=== PATIENT | female | born 1955 | race Caucasian/White ===

== ENCOUNTER → 2017-06-09 | Outpatient (CLI) | payer OTHER ==
[2017-06-09 10:57] LABS: Blood Urea Nitrogen 17 mg/dL (7-17); Non-African American GFR(MDRD) >60 (>60 ml/min/1.73 sqM)
== END | disposition home or self-care (01) ==
LOC: LABWHC1 09:48
PROVIDERS: ATTEND Psychiatry & Neurology Pain Medicine
DX: G45.9 Transient cerebral ischemic attack, unspecified (principal); R51 Headache
CPT/HCPCS: 36415; 82565; 84520

== ENCOUNTER → 2017-06-11 | Outpatient (CLI) | payer OTHER ==
--- NOTE | 2017-06-11 07:52 | MR ---
EXAMINATION TYPE: MR brain wo/w con DATE OF EXAM: 06/11/2017 7:42 AM COMPARISON: 09/24/2015 HISTORY: headaches, unspecified tia CONTRAST: Patient received 18 mL intravenous MultiHance gadolinium contrast. Multiplanar and multispin-echo imaging of the brain was performed . Pre and post contrast enhanced i mages are obtained. The ventricles, basal cisterns and sulci overlying the cerebral convexities are mildly enlarged. There is evidence of mild periventricular white matter ischemic demyelination. Remote deep white matter insults are also noted. No acute edema is seen on diffusion weighted imaging. There is no evidence for midline shift or mass effect. Acute intracranial hemorrhage or extra-axial collection is not evident. No enhancing lesions are seen. The paranasal sinuses and mastoid air cells are well-aerated. IMPRESSION: Age-related atrophic and chronic small vessel ischemic change. No acute intracranial process at this time. No enhancing lesions are seen.
== END | disposition home or self-care (01) ==
LOC: RADMRIMAIN 07:02
PROVIDERS: ATTEND Psychiatry & Neurology Pain Medicine
DX: G31.9 Degenerative disease of nervous system, unspecified (principal); I67.82 Cerebral ischemia
CPT/HCPCS: 70553; A9577

== ENCOUNTER 2017-12-28 05:16 | Observation (INO) | payer OTHER ==
--- NOTE | 2017-12-28 05:50 | ED ---
General Adult HPI - General Chief complaint: Neuro Symptoms/Deficit Stated complaint: Neuro symptoms Time Seen by Provider: 12/28/17 05:26 Source: patient, family Mode of arrival: ambulatory Limitations: no limitations - History of Present Illness Initial comments: This patient is a 62-year-old woman who states that she woke from sleep tonight with a number of symptoms that came on. She noted that her heart was jumping and she did feel a little short of breath. She stated that she had a funny feeling in her left arm. She is not able to exactly characterize it. She states that it felt a little bit numb more little bit weak. She was concerned after the symptoms did not resolve after she had been awake for a little while. When she described things to family member she was urged to come emergency department. She does note that for the past couple of days she has had a little bit of cough. Onset/Timin -: hour(s) - Related Data Home Medications Medication Instructions Recorded Confirmed Atorvastatin [Lipitor] 80 mg PO HS 09/22/15 12/28/17 Carvedilol [Coreg] 3.125 mg PO DIRECTED 09/22/15 12/28/17 Carvedilol [Coreg] 6.25 mg PO QAM 09/22/15 12/28/17 Cholecalciferol (Vitamin D3) 2,000 unit PO DAILY 12/28/17 12/28/17 [Vitamin D3] Clopidogrel Bisulfate [Plavix] 75 mg PO HS 12/28/17 12/28/17 Cyclobenzaprine [Flexeril] 5 mg PO BID 12/28/17 12/28/17 Losartan Potassium [Cozaar] 25 mg PO DAILY 12/28/17 12/28/17 Pantoprazole Sodium [Protonix] 40 mg PO DAILY 12/28/17 12/28/17 SUMAtriptan SUCCINATE [Imitrex] 50 mg PO ONCE 12/28/17 12/28/17 metFORMIN HCL [Glucophage Xr] 500 mg PO BID 12/28/17 12/28/17 Allergies Allergy/AdvReac Type Severity Reaction Status Date / Time No Known Allergies Allergy Verified 12/28/17 05:23 Review of Systems ROS Statement: Those systems with pertinent positive or pertinent negative responses have been documented in the HPI. ROS Other: All systems not noted in ROS Statement are negative. Constitutional: Denies: fever, chills, weakness Eyes: Denies: vision change Respiratory: Reports: cough. Denies: dyspnea, wheezes Cardiovascular: Reports: palpitations. Denies: chest pain, orthopnea, edema, syncope Gastrointestinal: Denies: abdominal pain, nausea, vomiting Genitourinary: Denies: dysuria Musculoskeletal: Denies: back pain Skin: Denies: rash Neurological: Reports: headache. Denies: weakness, numbness, paresthesias Psychiatric: Reports: anxiety Past Medical History Past Medical History: Diabetes Mellitus, Hyperlipidemia, Hypertension History of Any Multi-Drug Resistant Organisms: None Reported Past Surgical History: Appendectomy, Section, Hernia Repair, Hysterectomy, Tonsillectomy Additional Past Surgical History / Comment(s): carpal tunnel. lap band Past Anesthesia/Blood Transfusion Reactions: No Reported Reaction Past Psychological History: No Psychological Hx Reported Smoking Status: Never smoker Past Alcohol Use History: None Reported Past Drug Use History: None Reported - Past Family History Mother Family Medical History: Liver Disease Additional Family Medical History / Comment(s): pt. states her mother at age 38 from complications of liver disease Father Family Medical History: Coronary Artery Disease (CAD), Diabetes Mellitus Additional Family Medical History / Comment(s): pt. states her father had alzheimers, diabetes, and had open heart surgery Sister(s) Family Medical History: Cancer Additional Family Medical History / Comment(s): kidney cancer General Exam Limitations: no limitations General appearance: alert, in no apparent distress, obese Head exam: Present: atraumatic, normocephalic Eye exam: Present: normal appearance, PERRL, EOMI. Absent: scleral icterus, conjunctival injection, nystagmus ENT exam: Present: normal oropharynx Neck exam: Present: normal inspection Respiratory exam: Present: normal lung sounds bilaterally, other (Patient is having occasional cough during the exam). Absent: respiratory distress, wheezes , rales, rhonchi, stridor Cardiovascular Exam: Present: regular rate, normal rhythm, normal heart sounds. Absent: systolic murmur, diastolic murmur, rubs, gallop GI/Abdominal exam: Present: soft. Absent: distended, tenderness, guarding, rebound, mass Extremities exam: Present: normal inspection, normal capillary refill. Absent: pedal edema, calf tenderness Back exam: Present: normal inspection. Absent: CVA tenderness (R), CVA tenderness (L) Neurological exam: Present: alert, oriented X3, CN II-XII intact. Absent: motor sensory deficit Skin exam: Present: warm, dry, intact, normal color. Absent: rash Course Vital Signs 12/28/17 12/28/17 12/28/17 05:20 05:42 06:12 Temperature 97.8 F Pulse Rate 94 95 95 Respiratory 20 20 18 Rate Blood Pressure 207/98 199/98 206/112 O2 Sat by Pulse 98 97 100 Oximetry 12/28/17 12/28/17 06:26 06:38 Temperature Pulse Rate 95 96 Respiratory 18 18 Rate Blood Pressure 202/90 206/100 O2 Sat by Pulse 98 99 Oximetry EKG Findings - EKG Results: EKG: interpreted by CALEB ARIAS, sinus rhythm (Rate 89 bpm), normal axis, normal QRS, normal ST/T, no acute changes - FL, Pacemaker, Normal: Normal tracing: normal tracing Medical Decision Making - Medical Decision Making This patient is 62-year-old woman who has had previous TIA, presenting with some palpitations and also funny feeling in her left arm. The patient is also hypertensive on arrival, but given the possibility of TIA will aim for very gentle blood pressure correction to minimize risk of causing any increase of ischemic penumbra. The patient's initial workup is negative and she'll be admitted for further evaluation and treatment. - Lab Data Result diagrams: 12/28/17 05:44 12/28/17 05:44 Lab Results 12/28/17 12/28/17 12/28/17 Range/Units 05:30 05:44 05:44 WBC 4.9 (3.8-10.6) k/uL RBC 4.70 (3.80-5.40) m/uL Hgb 14.2 (11.4-16.0) gm/dL Hct 42.1 (34.0-46.0) % MCV 89.5 (80.0-100.0) fL MCH 30.3 (25.0-35.0) pg MCHC 33.8 (31.0-37.0) g/dL RDW 13.3 (11.5-15.5) % Plt Count 156 (150-450) k/uL Neutrophils % 78 % Lymphocytes % 11 % Monocytes % 7 % Eosinophils % 2 % Basophils % 1 % Neutrophils # 3.9 (1.3-7.7) k/uL Lymphocytes # 0.5 L (1.0-4.8) k/uL Monocytes # 0.3 (0-1.0) k/uL Eosinophils # 0.1 (0-0.7) k/uL Basophils # 0.0 (0-0.2) k/uL PT (9.0-12.0) sec INR (<1.2) APTT (22.0-30.0) sec Sodium (137-145) mmol/L Potassium (3.5-5.1) mmol/L Chloride (98-107) mmol/L Carbon Dioxide (22-30) mmol/L Anion Gap mmol/L BUN (7-17) mg/dL Creatinine (0.52-1.04) mg/dL Est GFR (MDRD) Af Amer (>60 ml/min/1.73 sqM) Est GFR (MDRD) Non-Af (>60 ml/min/1.73 sqM) Glucose (74-99) mg/dL POC Glucose (mg/dL) 104 H (75-99) mg/dL POC Glu Senior [employer] Applications Developer ID Blaine, Tracy Calcium (8.4-10.2) mg/dL Total Bilirubin (0.2-1.3) mg/dL AST (14-36) U/L ALT (9-52) U/L Alkaline Phosphatase (38-126) U/L Total Creatine Kinase 87 (30-135) U/L CK-MB (CK-2) 0.6 (0.0-2.4) ng/mL CK-MB (CK-2) Rel Index 0.7 Troponin I <0.012 (0.000-0.034) ng/mL Total Protein (6.3-8.2) g/dL Albumin (3.5-5.0) g/dL 12/28/17 12/28/17 Range/Units 05:44 05:44 WBC (3.8-10.6) k/uL RBC (3.80-5.40) m/uL Hgb (11.4-16.0) gm/dL Hct (34.0-46.0) % MCV (80.0-100.0) fL MCH (25.0-35.0) pg MCHC (31.0-37.0) g/dL RDW (11.5-15.5) % Plt Count (150-450) k/uL Neutrophils % % Lymphocytes % % Monocytes % % Eosinophils % % Basophils % % Neutrophils # (1.3-7.7) k/uL Lymphocytes # (1.0-4.8) k/uL Monocytes # (0-1.0) k/uL Eosinophils # (0-0.7) k/uL Basophils # (0-0.2) k/uL PT 10.6 (9.0-12.0) sec INR 1.1 (<1.2) APTT 24.4 (22.0-30.0) sec Sodium 142 (137-145) mmol/L Potassium 3.5 (3.5-5.1) mmol/L Chloride 102 (98-107) mmol/L Carbon Dioxide 28 (22-30) mmol/L Anion Gap 12 mmol/L BUN 12 (7-17) mg/dL Creatinine 0.72 (0.52-1.04) mg/dL Est GFR (MDRD) Af Amer >60 (>60 ml/min/1.73 sqM) Est GFR (MDRD) Non-Af >60 (>60 ml/min/1.73 sqM) Glucose 127 H (74-99) mg/dL POC Glucose (mg/dL) (75-99) mg/dL POC Glu Senior [employer] Applications Developer ID Calcium 9.6 (8.4-10.2) mg/dL Total Bilirubin 0.5 (0.2-1.3) mg/dL AST 71 H (14-36) U/L ALT 60 H (9-52) U/L Alkaline Phosphatase 103 (38-126) U/L Total Creatine Kinase (30-135) U/L CK-MB (CK-2) (0.0-2.4) ng/mL CK-MB (CK-2) Rel Index Troponin I (0.000-0.034) ng/mL Total Protein 7.0 (6.3-8.2) g/dL Albumin 4.4 (3.5-5.0) g/dL Disposition Clinical Impression: Accelerated hypertension, TIA (transient ischemic attack) Disposition: ADMITTED IP TO THIS HOSP Condition: Fair Referrals: Scout Bunn DO [Primary Care Provider] - 1-2 days
[2017-12-28 06:07] LABS: Basophils % (A) 1 %; Eosinophils # (A) 0.1 k/uL (0-0.7); Eosinophils % (A) 2 %; HCT 42.1 % (34.0-46.0); HGB 14.2 gm/dL (11.4-16.0); Lymphocytes # (A) 0.5 k/uL (1.0-4.8); Lymphocytes % (A) 11 %; MCH 30.3 pg (25.0-35.0); MCHC 33.8 g/dL (31.0-37.0); MCV 89.5 fL (80.0-100.0); Mean Platelet Volume 7.5; Monocytes # (A) 0.3 k/uL (0-1.0); Monocytes % (A) 7 %; Neutrophils # (A) 3.9 k/uL (1.3-7.7); Neutrophils % (A) 78 %; Platelet Count 156 k/uL (150-450); RDW 13.3 % (11.5-15.5); WBC 4.9 k/uL (3.8-10.6)
[2017-12-28 06:13] LABS: INR 1.1 (<1.2); Partial Thromboplastin Time 24.4 sec (22.0-30.0); Prothrombin Time 10.6 sec (9.0-12.0)
[2017-12-28 06:16] LABS: Glucose,Whole Blood 104 mg/dL (75-99)
[2017-12-28 06:17] LABS: ALT 60 U/L (9-52); AST 71 U/L (14-36); Albumin 4.4 g/dL (3.5-5.0); Alkaline Phosphatase 103 U/L (38-126); Anion Gap 12 mmol/L; Blood Urea Nitrogen 12 mg/dL (7-17); Calcium 9.6 mg/dL (8.4-10.2); Carbon Dioxide 28 mmol/L (22-30); Chloride 102 mmol/L (98-107); Glucose 127 mg/dL (74-99); Potassium 3.5 mmol/L (3.5-5.1); Sodium 142 mmol/L (137-145); Total Bilirubin 0.5 mg/dL (0.2-1.3)
[2017-12-28] MEDS ORDERED: CARVEDILOL 6.25 MG TAB PO STA (06:19)
--- NOTE | 2017-12-28 06:28 | XR ---
EXAM: XR Chest, 1 View CLINICAL HISTORY: Reason: altered mental status TECHNIQUE: Frontal view of the chest. COMPARISON: None. FINDINGS: Lungs: Unremarkable. The lungs are clear. Pleural space: Unremarkable. No pneumothorax. Heart: Unremarkable. No cardiomegaly. Mediastinum: Unremarkable. Bones/joints: Unremarkable. IMPRESSION: Normal chest x-ray.
[2017-12-28 06:30] LABS: Creatine Kinase 87 U/L (30-135)
[2017-12-28 06:43] LABS: Creatine Kinase MB 0.6 ng/mL (0.0-2.4); Troponin I <0.012 ng/mL (0.000-0.034)
--- NOTE | 2017-12-28 06:44 | CT ---
EXAM: CT Head Without Intravenous Contrast CLINICAL HISTORY: Reason: Neuro Deficits TECHNIQUE: Axial computed tomography images of the head/brain without intravenous contrast. DLP is 1082 mGy-cm. This CT exam was performed using one or more of the following dose reduction techniques: automated exposure control, adjustment of the mA and/or kV according to patient size, and/or use of iterative reconstruction technique. COMPARISON: CT head dated 09/22/2015. FINDINGS: Brain: Unremarkable. No acute intracranial hemorrhage. No midline shift or herniation. Ventricles: Unremarkable. No ventriculomegaly. Bones/joints: No acute fracture. Soft tissues: Unremarkable. Vasculature: Calcification of the distal internal carotid arteries. Sinuses: Unremarkable as visualized. Mastoid air cells: Unremarkable as visualized. Other findings: Very mild mucosal thickening in the maxillary antrums. IMPRESSION: No acute findings.
[2017-12-28] MEDS ORDERED: LOSARTAN 25 MG TAB PO STA (06:50)
[2017-12-28] MEDS ORDERED: ASPIRIN 325 MG TAB PO STA (07:04)
[2017-12-28] MEDS ORDERED: CARVEDILOL 6.25 MG TAB PO SCH (08:00)
[2017-12-28] MEDS: CYCLOBENZAPRINE 5 MG TAB PO SCH ×2 (08:27→20:10)
[2017-12-28] MEDS: metFORMIN 500 MG TAB PO SCH ×2 (08:27→17:08)
[2017-12-28] MEDS: PANTOPRAZOLE 40 MG TABLET PO SCH (08:27)
[2017-12-28] MEDS: SODIUM CHLORIDE 0.9% 1,000 ML IV SCH ×2 (08:28→15:41)
[2017-12-28 08:33] LABS: Glucose,Whole Blood 154 mg/dL (75-99)
[2017-12-28] MEDS ORDERED: ACETAMINOPHEN TAB 500 MG TAB PO STA (08:41)
--- NOTE | 2017-12-28 08:47 | US ---
EXAMINATION TYPE: US carotid duplex BILAT DATE OF EXAM: 12/28/2017 COMPARISON: US 09/22/2015 CLINICAL HISTORY: Stenosis. Pt states left side weakness EXAM MEASUREMENTS: RIGHT: Peak Systolic Velocity (PSV) cm/sec ----- Right CCA: 96.9 ----- Right ICA: 102.1 ----- Right ECA: 169.4 ICA/CCA ratio: 1.1 RIGHT: End Diastole cm/sec ----- Right CCA: 20.6 ----- Right ICA: 20.6 ----- Right ECA: 11.4 LEFT: Peak Systolic Velocity (PSV) cm/sec ----- Left CCA: 109.0 ----- Left ICA: 122.6 ----- Left ECA: 287.4 ICA/CCA ratio: 1.1 LEFT: End Diastole cm/sec ----- Left CCA: 25.5 ----- Left ICA: 33.8 ----- Left ECA: 48.2 VERTEBRALS (direction of flow): Right Vertebral: Antegrade Left Vertebral: Unable to visualize Rhythm: Normal IMPRESSION: Slightly elevated velocities on left, with significantly elevated velocities left ECA when compared to previous Criteria for Assigning % of Stenosis / Diameter reduction (Estimation based on the indirect measurements of the internal carotid artery velocities (ICA PSV). 1. Normal (no stenosis)=ICA PSV < 125 cm/s: ratio < 2.0: ICA EDV<40 cm/s. 2. Less than 50% stenosis=ICA PSV < 125 cm/s: ratio < 2.0: ICA EDV<40 cm/s. 3. 50 to 69% stenosis=ICA PSV of 125 to 230 cm/s: ration 2.0 ? 4.0: ICA EDV 40-100 cm/s. 4. Greater than 70% stenosis to near occlusion= ICA PSV > 230 cm/s: ratio > 4.0: ICA EDV > 100 cm/s. 5. Near occlusion= ICA PSV velocities may be low or undetectable: variable ratio and ICA EDV. 6. Total occlusion=unable to detect flow.
[2017-12-28] MEDS ORDERED: FAMOTIDINE 20 MG TAB PO SCH (09:00)
--- NOTE | 2017-12-28 09:39 | ECHOF ---
Referral Reason:Thrombus MEASUREMENTS -------- HEIGHT: 149.9 cm WEIGHT: 81.6 kg BP: 198/96 RVIDd: 2.5 cm (< 3.3) IVSd: 1.2 cm (0.6 - 1.1) LVIDd: 5.1 cm (3.9 - 5.3) LVPWd: 0.9 cm (0.6 - 1.1) IVSs: 1.5 cm LVIDs: 3.2 cm LVPWs: 1.4 cm LA Diam: 3.4 cm (2.7 - 3.8) LAESV Index (A-L): 35.65 ml/m Ao Diam: 2.7 cm (2.0 - 3.7) AV Cusp: 1.9 cm (1.5 - 2.6) MV EXCURSION: 11.844 mm (> 18.000) MV EF SLOPE: 52 mm/s (70 - 150) EPSS: 1.7 cm MV E Mahamed: 1.13 m/s MV DecT: 189 ms MV A Mahamed: 1.07 m/s MV E/A Ratio: 1.06 RAP: 5.00 mmHg RVSP: 40.20 mmHg FINDINGS -------- Sinus rhythm. This was a technically adequate study. The left ventricular size is normal. There is borderline concentric left ventricular hypertrophy. Overall left ventricular systolic function is normal with, an EF between 55 - 60 %. The right ventricle is normal in size. LA is moderately dilated 34-39 ml/m2 The right atrium is normal in size. The aortic valve is trileaflet, and appears structurally normal. No aortic stenosis or regurgitation. The mitral valve is normal. Mild mitral regurgitation is present. Mild tricuspid regurgitation present. There is mild pulmonary hypertension. The right ventricular systolic pressure, as measured by Doppler, is 40.20mmHg. The pulmonic valve was not well visualized. There is no pulmonic regurgitation present. The aortic root size is normal. Normal inferior vena cava with normal inspiratory collapse consistent with estimated right atrial pre ssure of 5 mmHg. There is no pericardial effusion. CONCLUSIONS -------- 1. Sinus rhythm. 2. This was a technically adequate study. 3. There is borderline concentric left ventricular hypertrophy. 4. Overall left ventricular systolic function is normal with, an EF between 55 - 60 %. 5. LA is moderately dilated 34-39 ml/m2 6. The aortic valve is trileaflet, and appears structurally normal. No aortic stenosis or regurgitati on. 7. Mild mitral regurgitation is present. 8. Mild tricuspid regurgitation present. 9. There is mild pulmonary hypertension. 10. The right ventricular systolic pressure, as measured by Doppler, is 40.20mmHg. 11. The pulmonic valve was not well visualized. 12. There is no pulmonic regurgitation present. 13. The aortic root size is normal. 14. Normal inferior vena cava with normal inspiratory collapse consistent with estimated right atrial pressure of 5 mmHg. 15. There is no pericardial effusion. PAINTER SPRAY: Nunu Mcnally RDCS
[2017-12-28 09:41] LABS: Appearance,Urine Clear (Clear); Bilirubin,Urine Negative (Negative); Blood,Urine Negative (Negative); Color,Urine Yellow; Glucose,Urine (UA) Trace (Negative); Ketones,Urine Negative (Negative); Leukocyte Esterase,Urine Trace (Negative); Mucus,Urine Occasional /hpf; Nitrite,Urine Negative (Negative); PH, Urine 5.5 (5.0-8.0); Protein,Urine Trace (Negative); RBC,Urine 1 /hpf (0-5); Specific Gravity,Urine 1.016 (1.001-1.035); Squamous Epithelial Cell,Urine 5 /hpf (0-4); Urobilinogen,Urine <2.0 mg/dL (<2.0); WBC,Urine 3 /hpf (0-5)
[2017-12-28] MEDS ORDERED: ONDANSETRON 4 MG/2 ML VIAL IVP PRN (10:30)
[2017-12-28] MEDS ORDERED: MORPHINE SULFATE 2 MG/ML SYRINGE IVP PRN (10:31)
[2017-12-28] MEDS: SUMAtriptan SUCCINATE 50 MG TAB PO PRN ×2 (10:48→21:33)
[2017-12-28] MEDS ORDERED: INFLUENZA VACCINE (6 MOS+) 60 MCG/0.5 ML SYRINGE IM ONE (11:56)
[2017-12-28] MEDS: CHOLECALCIFEROL 1,000 UNIT TAB PO SCH (12:06)
[2017-12-28] MEDS: AMITRIPTYLINE HCL 25 MG TAB PO SCH (12:06)
[2017-12-28] MEDS: ACETAMINOPHEN TAB 325 MG TAB PO PRN ×2 (15:26→23:12)
[2017-12-28 17:07] LABS: Glucose,Whole Blood 135 mg/dL (75-99)
[2017-12-28] MEDS ORDERED: CARVEDILOL 3.125 MG TAB PO SCH (17:30)
[2017-12-28] MEDS: INSULIN ASPART 100 UNIT/ML 1 ML 10 ML VIAL SQ SCH ×2 (18:30→21:10)
[2017-12-28] MEDS: OSELTAMIVIR 75 MG CAP PO SCH (20:10)
[2017-12-28] MEDS: CLOPIDOGREL 75 MG TAB PO SCH (20:10)
[2017-12-28] MEDS: ATORVASTATIN 80 MG TAB PO SCH (20:10)
--- NOTE | 2017-12-28 21:19 | P.CNNES ---
History of Present Illness Consult date: 12/28/17 Reason for Consult: This patient evaluated with left-sided weakness and possible TIA. History of Present Illness: This patient is a 62-year-old female who was in her usual state of health until 3 AM early this morning. She awoke due to feeling very warm and just not comfortable. Soon after awakening at 3 AM she noticed a flutter in her heart. She didn't notice heaviness in the left arm. She continued to feel weak and just not her normal self. She was able to awaken her who was concerned that she does have history of previous stroke. He immediately got dressed and brought her into the emergency room for further evaluation. Patient was seen in the ER by Dr. Soto. She was noted to have slight accelerated hypertension in the ER. She was sent for a computed tomography scan of the brain which revealed no acute findings. She underwent a carotid Doppler ultrasound which reveals slightly elevated velocities on the left. No significant stenosis was noted. The patient was recommended admission to the hospital for a complete stroke evaluation. Patient as noted has history of stroke in the past. She has been using Plavix 75 mg daily for secondary stroke prevention. She does have history of diabetes mellitus but her blood sugars have been under good control. The patient's symptoms of left-sided arm weakness have improved since admission. She was evaluated for possibility of influenza due to her fever in the ER. Her testing did come back positive for influenza A. Patient denies any chest pain at this time. She did experience atrial flutter at home. She is on very his antihypertensive medications including Coreg. We will await further recommendations from cardiology. Patient is now admitted and neurology has been consulted for further evaluation and recommendations. Review of Systems Constitutional: Denies chills, Denies fever Eyes: denies blurred vision, denies pain Ears, nose, mouth and throat: Denies headache, Denies sore throat Cardiovascular: Denies chest pain, Denies shortness of breath Respiratory: Denies cough Gastrointestinal: Denies abdominal pain, Denies diarrhea, Denies nausea, Denies vomiting Genitourinary: Denies dysuria, Denies hematuria Musculoskeletal: Denies myalgias Integumentary: Denies pruritus, Denies rash Neurological: Reports motor disturbance, Reports paresthesias, Denies numbness, Denies weakness Past Medical History Past Medical History: CVA/TIA, Diabetes Mellitus, Hyperlipidemia, Hypertension, Osteoarthritis (OA) Additional Past Medical History / Comment(s): NIDDM type II, 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 History of Any Multi-Drug Resistant Organisms: None Reported Past Surgical History: Appendectomy, Bariatric Surgery, Breast Surgery, Section, Hernia Repair, Hysterectomy, Orthopedic Surgery, Tonsillectomy Additional Past Surgical History / Comment(s): Lap band insertion and removal, incisional and bilateral hernia repairs, colonoscopy, bilateral benign breast bx , R knee arthroscopy, bilateral carpal tunnel releases. Past Anesthesia/Blood Transfusion Reactions: No Reported Reaction Smoking Status: Never smoker - Past Family History Mother Family Medical History: Liver Disease Additional Family Medical History / Comment(s): pt. states her mother at age 38 from complications of liver disease Father Family Medical History: Coronary Artery Disease (CAD), Diabetes Mellitus Additional Family Medical History / Comment(s): pt. states her father had alzheimers, diabetes, and had open heart surgery Sister(s) Family Medical History: Cancer Additional Family Medical History / Comment(s): kidney cancer Medications and Allergies Home Medications Medication Instructions Recorded Confirmed Type Atorvastatin [Lipitor] 80 mg PO HS 09/22/15 12/28/17 History Carvedilol [Coreg] 3.125 mg PO HS 09/22/15 12/28/17 History Carvedilol [Coreg] 6.25 mg PO QAM 09/22/15 12/28/17 History Amitriptyline HCl [Elavil] 25 mg PO DAILY 12/28/17 12/28/17 History Cholecalciferol (Vitamin D3) 2,000 unit PO DAILY 12/28/17 12/28/17 History [Vitamin D3] Clopidogrel Bisulfate [Plavix] 75 mg PO HS 12/28/17 12/28/17 History Cyclobenzaprine [Flexeril] 5 mg PO BID PRN 12/28/17 12/28/17 History Losartan Potassium [Cozaar] 25 mg PO DAILY 12/28/17 12/28/17 History Pantoprazole Sodium [Protonix] 40 mg PO DAILY 12/28/17 12/28/17 History SUMAtriptan SUCCINATE [Imitrex] 50 mg PO ONCE PRN 12/28/17 12/28/17 History metFORMIN HCL [Glucophage] 500 mg PO BID 12/28/17 12/28/17 History Allergies Allergy/AdvReac Type Severity Reaction Status Date / Time No Known Allergies Allergy Verified 12/28/17 07:24 Physical Examination - Vital Signs Vital Signs: Vital Signs Temp Pulse Pulse Pulse Resp BP BP 12/28/17 20:00 101.7 F H 98 18 172/79 12/28/17 18:25 100.4 F H 90 16 190/84 12/28/17 15:32 101.1 F H 92 20 182/74 12/28/17 10:05 84 16 199/93 12/28/17 09:17 96 16 150/111 12/28/17 09:05 94 16 196/84 12/28/17 08:45 100.6 F H 102 H 16 179/92 12/28/17 08:05 98 16 195/86 12/28/17 07:45 100 16 198/96 12/28/17 06:38 96 18 206/100 12/28/17 06:26 95 18 202/90 12/28/17 06:12 95 18 206/112 12/28/17 05:42 95 20 199/98 12/28/17 05:20 97.8 F 94 20 207/98 Pulse Ox 12/28/17 20:00 93 L 12/28/17 18:25 100 12/28/17 15:32 96 12/28/17 10:05 90 L 12/28/17 09:17 94 L 12/28/17 09:05 96 12/28/17 08:45 96 12/28/17 08:05 96 12/28/17 07:45 96 12/28/17 06:38 99 12/28/17 06:26 98 12/28/17 06:12 100 12/28/17 05:42 97 12/28/17 05:20 98 Intake and Output 12/28/17 12/28/17 12/28/17 06:59 14:59 22:59 Intake Total 0 Balance 0 Intake: IV 0 Sodium Chloride 0.9% 1, 0 000 ml @ 100 mls/hr IV . Q10H [facility] Rx#:[id number] Other: Weight 81.647 kg - Constitutional General appearance: average body habitus, cooperative - EENT EENT: PERRL, mucous membranes moist - Respiratory Respiratory: lungs clear, normal breath sounds - Cardiovascular Cardiovascular: regular rate, normal S1, normal S2 Extremities: no peripheral edema bilaterally - Gastrointestinal Gastrointestinal: normoactive bowel sounds - Integumentary Integumentary: normal - Neurologic Cranial nerve examination: PERRL, EOMI, VFF, V1/V2/V3 grossly intact, face symmetric, tongue midline, intact gag reflex, intact corneal reflex, normal palatal elevation Speech examination: intact Sensorimotor examination: intact Motor examination - right side: 4/5: biceps, triceps, wrist flexion, wrist extension, barrel builder, hip flexors, knee extensors, dorsiflexion, toe extension (EHL) , plantarflexion Motor examination - left side: 4/5: biceps, triceps, wrist flexion, wrist extension, barrel builder, hip flexors, knee extensors, dorsiflexion, toe extension (EHL) , plantarflexion Detailed sensory examination: intact Reflex and gait examination: intact Reflexes: 1+: ankle, bicep, knee, tricep - Musculoskeletal Musculoskeletal: no pain - Psychiatric Psychiatric: mood/affect appropriate, cooperative Results - Laboratory Findings CBC and BMP: 12/28/17 05:44 12/28/17 05:44 Abnormal Lab Findings: Abnormal Labs 12/28/17 12/28/17 12/28/17 05:30 05:44 05:44 Lymphocytes # 0.5 L Glucose 127 H POC Glucose (mg/dL) 104 H AST 71 H ALT 60 H Urine Protein Urine Glucose (UA) Ur Leukocyte Esterase Ur Squamous Epith Cells Urine Mucus Influenza Type A RNA 12/28/17 12/28/17 12/28/17 08:29 09:10 09:20 Lymphocytes # Glucose POC Glucose (mg/dL) 154 H AST ALT Urine Protein Trace H Urine Glucose (UA) Trace H Ur Leukocyte Esterase Trace H Ur Squamous Epith Cells 5 H Urine Mucus Occasional H Influenza Type A RNA Detected H 12/28/17 17:06 Lymphocytes # Glucose POC Glucose (mg/dL) 135 H AST ALT Urine Protein Urine Glucose (UA) Ur Leukocyte Esterase Ur Squamous Epith Cells Urine Mucus Influenza Type A RNA Assessment and Plan (1) TIA (transient ischemic attack) Current Visit: Yes Status: Acute Code(s): G45.9 - TRANSIENT CEREBRAL ISCHEMIC ATTACK, UNSPECIFIED SNOMED Code(s): 371834350 (2) Accelerated hypertension Current Visit: Yes Status: Acute Code(s): I10 - ESSENTIAL (PRIMARY) HYPERTENSION SNOMED Code(s): 68282679 (3) Coronary artery disease Current Visit: Yes Status: Acute Code(s): I25.10 - ATHSCL HEART DISEASE OF [place] CORONARY ARTERY W/O ANG PCTRS SNOMED Code(s): 28023238 (4) Diabetes mellitus Current Visit: Yes Status: Acute Code(s): E11.9 - TYPE 2 DIABETES MELLITUS WITHOUT COMPLICATIONS SNOMED Code(s): 40449597 Plan: This patient is a 62-year-old female who was admitted with symptoms of left arm weakness and mild expressive aphasia. Symptoms came on at 3 AM in the morning. was concerned that she has a history of previous stroke. She was brought directly to the emergency room early this morning for further evaluation. She was seen in the ER by Dr. Soto and was sent for a computed tomography scan of the brain. CAT scan of the brain was reported negative for any acute changes. She was suddenly admitted to hospital for further evaluation. She did have fever on initial admission and was tested positive for influenza A. She has been admitted to hospital for further stroke evaluation. Patient has been taking Plavix on a regular basis at home for secondary stroke prevention. Her symptoms of left arm weakness have improved since admission to hospital. Her clinical history suggests possibility of right hemispheric TIA versus stroke. We have recommended a complete stroke evaluation for the patient. We would recommend an MRI of the brain for further evaluation. Her overall prognosis at this time remains guarded. She should be maintained on Plavix for secondary stroke prevention. Her overall prognosis at this time remains guarded. Time with Patient: Greater than 30
[2017-12-28 21:21] LABS: Glucose,Whole Blood 115 mg/dL (75-99)
[2017-12-29 02:05] LABS: Hemoglobin A1C 6.9 % (4.0-6.0)
[2017-12-29] MEDS: SODIUM CHLORIDE 0.9% 1,000 ML IV SCH ×3 (02:30→15:31)
[2017-12-29 05:22] LABS: Cholesterol 128 mg/dL (<200); HDL Cholesterol 46 mg/dL (40-60); LDL Cholesterol,Calculated 58 mg/dL (0-99); Triglycerides 120 mg/dL (<150)
[2017-12-29] MEDS: INSULIN ASPART 100 UNIT/ML 1 ML 10 ML VIAL SQ SCH ×4 (05:37→20:43)
[2017-12-29 05:38] LABS: Glucose,Whole Blood 96 mg/dL (75-99)
[2017-12-29] MEDS: metFORMIN 500 MG TAB PO SCH ×2 (06:38→17:05)
[2017-12-29] MEDS: PANTOPRAZOLE 40 MG TABLET PO SCH (06:38)
[2017-12-29] MEDS ORDERED: CARVEDILOL 6.25 MG TAB PO SCH (07:30)
--- NOTE | 2017-12-29 08:54 | P.CRDCN ---
History of Present Illness Consult date: 12/29/17 Requesting physician: Scout Bunn Consult reason: chest pain Chief complaint: Palpitations, left arm numbness History of present illness: This is a 62-year-old female with history of hypertension, diabetes, hyperlipidemia, strong family history of premature coronary artery disease in her rather who has had coronary artery bypass grafting surgery, as well as her father who also underwent coronary artery bypass grafting surgery, she is a nonsmoker, history of prior CVA. Patient presents to the hospital with symptoms of palpitations and left arm numbness. She states that she awoke from sleep, felt her heart race and then it felt as though it stopped, again she noticed it beating fast, she had some left arm discomfort and numbness, and states subsequent to this she also had uncomfortable feeling in her chest. She denies any fever or chills at home, no recent cough, she does complain of severe headache. According to the patient, her blood pressure has also been running very high at home for quite some time. Her current medications at home include Glucophage 500 mg twice a day, Elavil 25 mg daily, Coreg 6.25 mg in the morning and 3.125 mg at at bedtime, Cozaar 25 mg daily, Plavix 75 mg daily, Imitrex when necessary, Lipitor 80 mg daily. Patient denies having any prior workup for coronary artery disease in the form of stress test or heart catheterization. CAT scan of the brain was performed on admission here which not reveal any acute findings. EKG on admission here shows a normal sinus rhythm with no acute changes. Carotid Doppler study was performed which revealed slightly elevated velocities on the left, significantly elevated velocities left ECA as compared with previous. Blood pressure on arrival here 207/98, heart rate in the 90s, 98% on room air. Blood pressure this morning 142 /70 with a heart rate in the 80s, the patient is running fevers, temperature was up to 102.5 at 11 PM last evening, temperature this morning 100.7. She is positive for influenza A. White blood cell count is normal, hemoglobin 14.2, platelet count 156. Sodium 142, potassium 3.5, BUN 12, creatinine 0.7. AST 71 , ALT 60. Troponins negative 3. Echocardiogram with Doppler study was performed which revealed an ejection fraction of 55-60%, mild MR, mild TR. At the time of my examination this morning, patient complains of headache. She denies any chest discomfort, does complain of body aches this morning, denies any shortness of breath. 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 History of Any Multi-Drug Resistant Organisms: None Reported Past Surgical History: Appendectomy, Bariatric Surgery, Breast Surgery, Section, Hernia Repair, Hysterectomy, Orthopedic Surgery, Tonsillectomy Additional Past Surgical History / Comment(s): Lap band insertion and removal, incisional and bilateral hernia repairs, colonoscopy, bilateral benign breast bx , R knee arthroscopy, bilateral carpal tunnel releases. Past Anesthesia/Blood Transfusion Reactions: No Reported Reaction Smoking Status: Never smoker - Past Family History Mother Family Medical History: Liver Disease Additional Family Medical History / Comment(s): pt. states her mother at age 38 from complications of liver disease Father Family Medical History: Coronary Artery Disease (CAD), Diabetes Mellitus Additional Family Medical History / Comment(s): pt. states her father had alzheimers, diabetes, and had open heart surgery Sister(s) Family Medical History: Cancer Additional Family Medical History / Comment(s): kidney cancer Medications and Allergies Home Medications Medication Instructions Recorded Confirmed Type Atorvastatin [Lipitor] 80 mg PO HS 09/22/15 12/28/17 History Carvedilol [Coreg] 3.125 mg PO HS 09/22/15 12/28/17 History Carvedilol [Coreg] 6.25 mg PO QAM 09/22/15 12/28/17 History Amitriptyline HCl [Elavil] 25 mg PO DAILY 12/28/17 12/28/17 History Cholecalciferol (Vitamin D3) 2,000 unit PO DAILY 12/28/17 12/28/17 History [Vitamin D3] Clopidogrel Bisulfate [Plavix] 75 mg PO HS 12/28/17 12/28/17 History Cyclobenzaprine [Flexeril] 5 mg PO BID PRN 12/28/17 12/28/17 History Losartan Potassium [Cozaar] 25 mg PO DAILY 12/28/17 12/28/17 History Pantoprazole Sodium [Protonix] 40 mg PO DAILY 12/28/17 12/28/17 History SUMAtriptan SUCCINATE [Imitrex] 50 mg PO ONCE PRN 12/28/17 12/28/17 History metFORMIN HCL [Glucophage] 500 mg PO BID 12/28/17 12/28/17 History Allergies Allergy/AdvReac Type Severity Reaction Status Date / Time No Known Allergies Allergy Verified 12/28/17 07:24 Physical Exam Vitals: Vital Signs Temp Pulse Pulse Pulse Resp BP BP 12/29/17 04:00 100.7 F H 89 18 143/70 12/29/17 00:00 18 12/28/17 23:15 18 12/28/17 23:05 102.5 F H 94 18 12/28/17 20:00 101.7 F H 98 18 12/28/17 18:25 100.4 F H 90 16 12/28/17 15:32 101.1 F H 92 20 12/28/17 10:05 84 16 12/28/17 09:17 96 16 150/111 12/28/17 09:05 94 16 12/28/17 08:45 100.6 F H 102 H 16 179/92 BP Pulse Ox 12/29/17 04:00 95 12/29/17 00:00 12/28/17 23:15 93 L 12/28/17 23:05 161/72 87 L 12/28/17 20:00 172/79 93 L 12/28/17 18:25 190/84 100 12/28/17 15:32 182/74 96 12/28/17 10:05 199/93 90 L 12/28/17 09:17 94 L 12/28/17 09:05 196/84 96 12/28/17 08:45 96 Intake and Output 12/28/17 12/29/17 12/29/17 22:59 06:59 14:59 Intake Total 0 1100 Balance 0 1100 Intake: IV 0 Sodium Chloride 0.9% 1, 0 000 ml @ 100 mls/hr IV . Q10H [facility] Rx#:[id number] Intake, IV Titration 1100 Amount Sodium Chloride 0.9% 1, 1100 000 ml @ 100 mls/hr IV . Q10H [facility] Rx#:[id number] Other: # Voids 3 Weight 82.9 kg PHYSICAL EXAMINATION: HEENT: Head is atraumatic, normocephalic. Pupils equal, round. Neck is supple. There is no elevated jugular venous pressure. HEART EXAMINATION: Heart S1, S2 normal. No murmur or gallop heard. CHEST EXAMINATION: Lungs are clear to auscultation and precussion. No chest wall tenderness is noted on palpation or with deep breathing. ABDOMEN: Soft, nontender. Bowel sounds are heard. No organomegaly noted. EXTREMITIES: 2+ peripheral pulses with no evidence of peripheral edema and no calf tenderness noted. NEUROLOGIC patient is awake, alert and oriented -3. . Results 12/28/17 05:44 12/28/17 05:44 Cardiac Enzymes 12/28/17 12/28/17 Range/Units 11:26 17:39 Troponin I <0.012 <0.012 (0.000-0.034) ng/mL Lipids 12/28/17 Range/Units 05:44 Triglycerides 120 (<150) mg/dL Cholesterol 128 (<200) mg/dL HDL Cholesterol 46 (40-60) mg/dL Current Medications Generic Name Dose Route Start Last Admin Trade Name Freq PRN Reason Stop Dose Admin Acetaminophen 650 mg 12/28/17 10:32 12/28/17 23:12 Tylenol Tab PO 650 mg Q6HR PRN Administration Fever and/ or Mild Pain Amitriptyline HCl 25 mg 12/28/17 10:30 12/28/17 12:06 Elavil PO 25 mg DAILY [facility] Administration Aspirin 325 mg 12/29/17 09:00 Aspirin PO DAILY [facility] Atorvastatin Calcium 80 mg 12/28/17 21:00 12/28/17 20:10 Lipitor PO 80 mg HS [facility] Administration Carvedilol 3.125 mg 12/28/17 17:30 12/28/17 17:08 Coreg PO 3.125 mg W/SUPPER [facility] Administration Carvedilol 6.25 mg 12/29/17 07:30 12/29/17 06:38 Coreg PO 6.25 mg W/BRKFST [facility] Administration Cholecalciferol 2,000 unit 12/28/17 12:00 12/28/17 12:06 Vitamin D3 PO 2,000 unit 1200 [facility] Administration Clopidogrel Bisulfate 75 mg 12/28/17 21:00 12/28/17 20:10 Plavix PO 75 mg HS [facility] Administration Cyclobenzaprine HCl 5 mg 12/28/17 09:00 02/06/18 20:10 Flexeril PO 5 mg BID [facility] Administration Sodium Chloride 1,000 mls @ 100 mls/hr 12/28/17 07:15 12/29/17 02:30 Saline 0.9% IV 100 mls/hr .Q10H [facility] Administration Insulin Aspart 0 unit 12/28/17 17:30 12/29/17 05:37 Novolog SQ Not Given ACHS [facility] Protocol Losartan Potassium 25 mg 12/29/17 09:00 Cozaar PO DAILY [facility] Metformin HCl 500 mg 12/28/17 08:00 12/29/17 06:38 Glucophage PO 500 mg BID-W/MEALS [facility] Administration Morphine Sulfate 2 mg 12/28/17 10:31 12/29/17 06:59 Morphine Sulfate (Inj) IVP 2 mg Q4H PRN Administration Severe Pain/Discomfort Ondansetron HCl 4 mg 12/28/17 10:30 12/28/17 10:48 Zofran IVP 4 mg Q6HR PRN Administration Nausea And Vomiting Oseltamivir Phosphate 75 mg 12/28/17 21:00 12/28/17 20:10 Tamiflu PO 01/02/18 09:01 75 mg Q12HR [facility] Administration Pantoprazole Sodium 40 mg 12/28/17 08:00 12/29/17 06:38 Protonix PO 40 mg AC-BRKFST [facility] Administration Sumatriptan Succinate 50 mg 12/28/17 10:30 12/28/17 21:33 Imitrex PO 50 mg Q12HR PRN Administration Headache Intake and Output 12/28/17 12/29/17 12/29/17 22:59 06:59 14:59 Intake Total 0 1100 Balance 0 1100 Intake: IV 0 Sodium Chloride 0.9% 1, 0 000 ml @ 100 mls/hr IV . Q10H [facility] Rx#:[id number] Intake, IV Titration 1100 Amount Sodium Chloride 0.9% 1, 1100 000 ml @ 100 mls/hr IV . Q10H [facility] Rx#:[id number] Other: # Voids 3 Weight 82.9 kg 12/28/17 05:44 12/28/17 05:44 EKG Interpretations (text) EKG shows normal sinus rhythm with no acute changes. Assessment and Plan Plan: Assessment and plan #1 symptoms of chest pain with associated palpitations, atypical for acute coronary syndrome. Troponins negative 3. EKG shows a normal sinus rhythm with no acute changes. #2 positive influenza A #3 hypertension, uncontrolled #4 diabetes # 5 hyperlipidemia #6 prior CVA #7 strong family history of premature coronary artery disease in her father and her brother. Plan Patient did have an echocardiogram with Doppler study performed here which revealed an ejection fraction of 55-60%. Borderline LVH. We will decrease the patient's aspirin to 81 mg daily, continue Lipitor 80, increase Coreg to 6.25 mg twice a day, continue Plavix, losartan. Once the patient's fluid has resolved, we would recommend stress testing as an outpatient for further evaluation of possible underlying coronary artery disease. Further recommendations to follow. DNP note has been reviewed, I agree with a documented findings and plan of care. Patient was seen and examined.
[2017-12-29] MEDS ORDERED: LOSARTAN 25 MG TAB PO SCH (09:00)
[2017-12-29] MEDS ORDERED: ASPIRIN 325 MG TAB PO SCH (09:00)
[2017-12-29] MEDS: AMITRIPTYLINE HCL 25 MG TAB PO SCH (09:12)
[2017-12-29] MEDS: OSELTAMIVIR 75 MG CAP PO SCH ×2 (09:12→19:59)
[2017-12-29] MEDS ORDERED: ACETIC ACID 15 DROPS/ML DROPS ONE (10:00)
[2017-12-29] MEDS: CYCLOBENZAPRINE 5 MG TAB PO SCH ×2 (10:14→19:59)
[2017-12-29] MEDS: ASPIRIN 81 MG PO SCH (10:15)
[2017-12-29] MEDS ORDERED: HYDROmorphone 4 MG/ML 1 ML SYRINGE IVP PRN (10:23)
[2017-12-29] MEDS ORDERED: HYDROcodone/APAP 5-325MG 1 EACH TAB PO PRN (10:24)
[2017-12-29 11:48] LABS: Glucose,Whole Blood 94 mg/dL (75-99)
[2017-12-29] MEDS: CHOLECALCIFEROL 1,000 UNIT TAB PO SCH (12:09)
--- NOTE | 2017-12-29 12:19 | MR ---
EXAMINATION TYPE: MR brain wo con DATE OF EXAM: 12/29/2017 COMPARISON: 09/24/2015 HISTORY: Patient with left sided weakness and speech impair CONTRAST: Performed utilizing 0 mL intravenous Gadavist gadolinium contrast. TECHNIQUE: Multiplanar, multiecho imaging on a 3.0 [place] magnet is performed through the brain. Stud y is performed within 24 hours of arrival to the hospital. The craniovertebral junction is normal. The pituitary is normal. Diffusion-weighted imaging is performed. No abnormal hyperintensity is present to suggest an acute i ntracranial infarct or acute ischemic change. There are couple of punctate hyperintensities within subcortical white matter as well as some mild pe riventricular white matter hyperintensity on T2 and inversion recovery weighted sequences Ventricles and sulci are appropriate for the patient age. There is small amount of fluid within the right mastoid air cells and minimal fluid within the inferi or lateral left mastoid air cells. Correlate for acute mastoiditis. Some minimal mucosal thickening i s within frontal and ethmoid air cells. Some minimal fluid may be within the left maxillary sinus. IMPRESSIONS: 1. No acute ischemic changes. Acute infarct is not identified 2. Mild periventricular white matter and subcortical punctate white matter changes can be chronic. 3. Clinical correlation recommended for acute mild bilateral mastoiditis, right more than left. Mild acute left maxillary sinusitis may be present.
[2017-12-29] MEDS ORDERED: hydrALAZINE HCL 20 MG/ML 1 ML VIAL IVP PRN (12:31)
[2017-12-29] MEDS: ACETAMINOPHEN TAB 325 MG TAB PO PRN ×2 (13:12→23:27)
--- NOTE | 2017-12-29 13:47 | P.HPIM ---
History of Present Illness H&P Date: 12/29/17 Chief Complaint: Weakness 62-year-old who presented to the emergency room with a chief complaint of weakness and numbness of her left arm. The patient states she was sleeping last night when she was awoken out of a deep sleep. She described the events as if she stopped breathing. She states she felt her heart "thump" as if it stopped beating and then after 10-15 seconds, she states it felt normal. The patient states it did not feel like her heart was racing. She has weakness to her left upper and lower extremity secondary to a TIA two years ago, but she states her left side felt more weak than normal. Patients family is at the bedside and states that patients blood pressure has been elevated at home for the last 2-3 months. She states she takes her blood pressure at least once a day , sometimes twice and it has been running 180-200s/80-90s. She states she did see Dr. Bunn in the office for her blood pressure and he adjusted her medications. She denies nausea or vomiting. Denies shortness of breath currently. She is experiencing a cough that is nonproductive. Positive for fever and chills. 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 Chest x-ray: Negative for acute process CT of the brain: Negative for acute process EKG: Sinus rhythm with no acute changes Echocardiogram: Ejection fraction between 55-60%, mild mitral regurgitation, mild tricuspid regurgitation, mild pulmonary hypertension, with RVSP of 40.20mmHg. MRI of the brain: No acute ischemic changes, acute infarct is not identified. Mild periventricular white matter and subcortical punctate white matter changes can be chronic. Clinical correlation recommended for acute mild bilateral mastoiditis, right more than left. Mild acute left maxillary sinusitis may present. Carotid Doppler: Slightly elevated velocities on the left with significantly elevated velocities left ECA when compared to previous Laboratory data: WBC 4.9. Hemoglobin 14.2. Platelet count 156. Sodium 142. Potassium 3.5. BUN 12. Creatinine 0.72. Glucose 127. Magnesium . ALT 71. AST 60. Troponins negative 3 Testing for influenza A was positive Urinalysis reveals: Trace proteinuria, trace glucose, and trace leukocyte esterase The patient was admitted to the hospital under the care of Dr. Bunn. Consultations were placed to cardiology and neurology. Review of Systems GENERAL: Positive for fever and chills. EYES: Denies blurred vision. Denies vision changes. Denies eye pain. EARS, NOSE, MOUTH, & THROAT: Denies headache. Denies sore throat. Denies ear pain. RESPIRATORY: Positive for nonproductive cough. Denies shortness of breath. Denies sputum production. Denies hemoptysis. CARDIOVASCULAR: Positive for a "thump" type sensation in her chest yesterday. Denies chest pain or pressure. Denies palpitations. Denies arrhythmias. GASTROINTESTINAL: Denies abdominal pain. Denies diarrhea. Denies constipation. Denies nausea. Denies vomiting. Denies heartburn. Denies blood in the stool. GENITOURINARY: Denies urinary frequency. Denies burning. Denies dysuria. Denies cloudy urine. Denies blood in the urine. MUSCULOSKELETAL: Denies myalgias. Denies joint swelling. Denies decreased range of motion beyond patients baseline. INTEGUMENTARY: Denies pruitis. Denies rash. PSYCHIATRIC: Denies suicidal or homicial ideations. ENDOCRINE: Denies weight change. Denies polydipsia. Denies polyuria. HEMATOLOGIC: Denies bleeding disorders. 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 History of Any Multi-Drug Resistant Organisms: None Reported Past Surgical History: Appendectomy, Bariatric Surgery, Breast Surgery, Section, Hernia Repair, Hysterectomy, Orthopedic Surgery, Tonsillectomy Additional Past Surgical History / Comment(s): Lap band insertion and removal, incisional and bilateral hernia repairs, colonoscopy, bilateral benign breast bx , R knee arthroscopy, bilateral carpal tunnel releases. Past Anesthesia/Blood Transfusion Reactions: No Reported Reaction Smoking Status: Never smoker - Past Family History Mother Family Medical History: Liver Disease Additional Family Medical History / Comment(s): pt. states her mother at age 38 from complications of liver disease Father Family Medical History: Coronary Artery Disease (CAD), Diabetes Mellitus Additional Family Medical History / Comment(s): pt. states her father had alzheimers, diabetes, and had open heart surgery Sister(s) Family Medical History: Cancer Additional Family Medical History / Comment(s): kidney cancer Medications and Allergies Home Medications Medication Instructions Recorded Confirmed Type Atorvastatin [Lipitor] 80 mg PO HS 09/22/15 12/28/17 History Carvedilol [Coreg] 3.125 mg PO HS 09/22/15 12/28/17 History Carvedilol [Coreg] 6.25 mg PO QAM 09/22/15 12/28/17 History Amitriptyline HCl [Elavil] 25 mg PO DAILY 12/28/17 12/28/17 History Cholecalciferol (Vitamin D3) 2,000 unit PO DAILY 12/28/17 12/28/17 History [Vitamin D3] Clopidogrel Bisulfate [Plavix] 75 mg PO HS 12/28/17 12/28/17 History Cyclobenzaprine [Flexeril] 5 mg PO BID PRN 12/28/17 12/28/17 History Losartan Potassium [Cozaar] 25 mg PO DAILY 12/28/17 12/28/17 History Pantoprazole Sodium [Protonix] 40 mg PO DAILY 12/28/17 12/28/17 History SUMAtriptan SUCCINATE [Imitrex] 50 mg PO ONCE PRN 12/28/17 12/28/17 History metFORMIN HCL [Glucophage] 500 mg PO BID 12/28/17 12/28/17 History Allergies Allergy/AdvReac Type Severity Reaction Status Date / Time No Known Allergies Allergy Verified 12/28/17 07:24 Physical Exam Vitals: Vital Signs Temp Pulse Pulse Resp BP BP Pulse Ox 12/29/17 12:54 100.5 F H 12/29/17 12:00 90 16 176/82 94 L 12/29/17 08:00 98.2 F 90 90 18 173/85 92 L 12/29/17 04:00 100.7 F H 89 18 143/70 95 12/29/17 00:00 18 12/28/17 23:15 18 93 L 12/28/17 23:05 102.5 F H 94 18 161/72 87 L 12/28/17 20:00 101.7 F H 98 18 172/79 93 L 12/28/17 18:25 100.4 F H 90 16 190/84 100 12/28/17 15:32 101.1 F H 92 20 182/74 96 Intake and Output 12/28/17 12/29/17 12/29/17 22:59 06:59 14:59 Intake Total 0 1100 236 Balance 0 1100 236 Intake: IV 0 Sodium Chloride 0.9% 1, 0 000 ml @ 100 mls/hr IV . Q10H [facility] Rx#:[id number] Intake, IV Titration 1100 Amount Sodium Chloride 0.9% 1, 1100 000 ml @ 100 mls/hr IV . Q10H [facility] Rx#:[id number] Oral 236 Other: # Voids 3 Weight 82.9 kg GENERAL: This is a 62-year-old female in no apparent distress at the time of examination. Pleasant and cooperative. HEENT: Head is atraumatic, normocephalic. Pupils are equal, round, and reactive to light. Sclerae anicteric. Conjunctivae are clear. Mucus membranes of the mouth are moist. Neck is supple. RESPIRATORY: Clear to ausculation. No wheezes, rales, or rhonchi. No use of accessory muscles. Patient maintaining oxygen saturation greater than 92%. No chest wall tenderness is noted on palpation or with deep breathing. CARDIOVASCULAR: Regular rate and rhythm. S1 and S2 noted. No systolic or diastolic murmur auscultated. No JVD noted. No S3 or S4 noted. GASTROINTESTINAL: No distention noted. Abdomen soft and round. Normal active bowel sounds auscultated x 4 quadrants. No pain or tenderness noted upon palpation. INTEGUMENTARY: No cyanosis. No jaundice. No rashes noted. No cellulitis noted. EXTREMITIES: 2+ peripheral pulses. No evidence of peripheral edema. No calf tenderness noted. NEUROLOGIC: Cranial nerves II-XII intact. Speech clear. Sensation intact. Left upper extremity and left lower extremity strength 4/5. PSYCHIATRIC: Awake, alert, and oriented X 3. Appropriate affect. Intact judgement and insight. Results CBC & Chem 7: 12/28/17 05:44 12/28/17 05:44 Labs: Abnormal Lab Results - Last 24 Hours (Table) 12/28/17 12/28/17 12/28/17 Range/Units 17:06 17:39 20:48 POC Glucose (mg/dL) 135 H 115 H (75-99) mg/dL Hemoglobin A1c 6.9 H (4.0-6.0) % Thrombosis Risk Factor Assmnt - Choose All That Apply Any of the Below Risk Factors Present?: Yes Each Factor Represents 1 point: Obesity (BMI >25) Other Risk Factors: Yes Each Risk Factor Represents 2 Points: Age 61-74 years Other congenital or acquired thrombophilia - If yes, enter type in comment: No Thrombosis Risk Factor Assessment Total Risk Factor Score: 3 Thrombosis Risk Factor Assessment Level: Moderate Risk Assessment and Plan Plan: ASSESSMENT: Right hemispheric transient ischemic attack, present on admission Essential hypertension, currently uncontrolled Acute influenza A, type A Chest pain with "thump" sensation per patient, atypical for acute coronary syndrome, troponins negative x3 Possible acute mild bilateral mastoiditis, right more than left Mild acute left maxillary sinusitis Persistent headache Diabetes mellitus, type II, hemoglobin A1c 6.9% History of CVA/TIA in 2015 with residual left-sided weakness Hyperlipidemia Osteoarthritis Obesity: BMI 36.9 PLAN: Cardiology on consult. Appreciate recommendations and input Coreg increased to 6.25 mg twice a day per cardiology Increase Cozaar to 50mg daily starting tomorrow AM Hydralazine PRN for SBP greater than 170 Cardiology recommended stress test on an outpatient basis Neurology on consult. Appreciate recommendations and input Await results of EEG Capillary blood glucose accu-checks AC/HS NovoLog sliding scale insulin coverage AC/HS Continue isolation precautions Tamiflu 75 mg twice a day 10 doses Consult ENT for possible mastoiditis Will begin Rocephin 1 g IV every 24 hours Home meds as appropriate Monitor labs PT/OT Physical therapy recommending cane for patient Left message with case technician regarding cane GI prophylaxis: Protonix 40 mg PO Daily DVT prophylaxis: Venodyne's to bilateral lower extremities Monitor vital signs and address as appropriate Discharge planning: Patient to return home when stable Further recommendations pending patient's course Nurse practitioner note has been reviewed by physician. Signing provider agrees with the documented findings, assessment, and plan of care.
[2017-12-29] MEDS: cefTRIAXone IN SWFI 1,000 MG/10 ML SYRINGE IVP SCH (15:31)
[2017-12-29] MEDS ORDERED: HYDROmorphone 2 MG TAB PO PRN (16:36)
[2017-12-29] MEDS ORDERED: MORPHINE ORAL SOLN 10 MG/5 ML CUP PO PRN (16:37)
[2017-12-29 16:58] LABS: Glucose,Whole Blood 241 mg/dL (75-99)
[2017-12-29] MEDS: CARVEDILOL 6.25 MG TAB PO SCH (17:05)
--- NOTE | 2017-12-29 19:45 | P.GSCN ---
History of Present Illness Consult date: 12/29/17 Reason for Consult: Fluid in mastoids and mild chronic maxillary sinusitis on MRI scan Requesting physician: Scout Bunn History of present illness: The purpose for this patient's admission is neurologic. The patient suffered with some left arm numbness weakness which appears to be better and has been diagnosed as having a TIA. During the workup she had an MRI scan performed demonstrating some fluid in the mastoids or so on the right than the left and some mild chronic maxillary sinusitis. I did review the results of the MRI demonstrating a deviated nasal septum to the right with the left middle turbinate moses bullosa. He has some bilateral maxillary sinus mucoperiosteal thickening along with some fluid in both mastoid air cells with the right side being worse than the left. She does complain of some postauricular pain at times and worse when she moves her head. She has some fullness to the ears. In regards to her sinuses she's had a lifetime of sinus issues including sneezing, lacrimation, itching, drainage and nasal obstruction. Her nasal obstruction is intermittent. Her drainage varies from either a clear to yellow. She had does have some hyposmia. Again, her ear fullness sinus drainage and nasal obstruction have been a problem for many years. Review of Systems - Constitutional Denies anorexia, Denies fever - EENT Eyes: bilateral as per HPI Ears, nose, mouth and throat: Denies neck fullness/pressure, Denies neck lump, Denies nose pain - Cardiovascular Denies chest pain - Respiratory Denies congestion - Gastrointestinal Denies abdominal pain - Genitourinary Genitourinary: Denies hematuria Menstruation: Reports as per HPI - Musculoskeletal Reports arm numbness/tingling - Integumentary Denies boils - Neurological Denies aphasia - Psychiatric Denies anhedonia - Endocrine Denies cold intolerance - Hematologic/Lymphatic Denies lymphadenopathy - Allergic/Immunologic Reports allergic rhinitis Past Medical History Past Medical History: CVA/TIA, Diabetes Mellitus, Hyperlipidemia, Hypertension, Osteoarthritis (OA) Additional Past Medical History / Comment(s): NIDDM type II, 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 History of Any Multi-Drug Resistant Organisms: None Reported Past Surgical History: Appendectomy, Bariatric Surgery, Breast Surgery, Section, Hernia Repair, Hysterectomy, Orthopedic Surgery, Tonsillectomy Additional Past Surgical History / Comment(s): Lap band insertion and removal, incisional and bilateral hernia repairs, colonoscopy, bilateral benign breast bx , R knee arthroscopy, bilateral carpal tunnel releases. Past Anesthesia/Blood Transfusion Reactions: No Reported Reaction Smoking Status: Never smoker - Past Family History Mother Family Medical History: Liver Disease Additional Family Medical History / Comment(s): pt. states her mother at age 38 from complications of liver disease Father Family Medical History: Coronary Artery Disease (CAD), Diabetes Mellitus Additional Family Medical History / Comment(s): pt. states her father had alzheimers, diabetes, and had open heart surgery Sister(s) Family Medical History: Cancer Additional Family Medical History / Comment(s): kidney cancer Medications and Allergies Home Medications Medication Instructions Recorded Confirmed Type Atorvastatin [Lipitor] 80 mg PO HS 09/22/15 12/28/17 History Carvedilol [Coreg] 3.125 mg PO HS 09/22/15 12/28/17 History Carvedilol [Coreg] 6.25 mg PO QAM 09/22/15 12/28/17 History Amitriptyline HCl [Elavil] 25 mg PO DAILY 12/28/17 12/28/17 History Cholecalciferol (Vitamin D3) 2,000 unit PO DAILY 12/28/17 12/28/17 History [Vitamin D3] Clopidogrel Bisulfate [Plavix] 75 mg PO HS 12/28/17 12/28/17 History Cyclobenzaprine [Flexeril] 5 mg PO BID PRN 12/28/17 12/28/17 History Losartan Potassium [Cozaar] 25 mg PO DAILY 12/28/17 12/28/17 History Pantoprazole Sodium [Protonix] 40 mg PO DAILY 12/28/17 12/28/17 History SUMAtriptan SUCCINATE [Imitrex] 50 mg PO ONCE PRN 12/28/17 12/28/17 History metFORMIN HCL [Glucophage] 500 mg PO BID 12/28/17 12/28/17 History Allergies Allergy/AdvReac Type Severity Reaction Status Date / Time No Known Allergies Allergy Verified 12/28/17 07:24 Surgical - Exam Osteopathic Statement: *. No significant issues noted on an osteopathic structural exam other than those noted in the History and Physical/Consult. Vital Signs Temp Pulse Resp BP Pulse Ox 97.8 F 94 20 207/98 98 12/28/17 05:20 12/28/17 05:20 12/28/17 05:20 12/28/17 05:20 12/28/17 05:20 - General Head is normocephalic the face is symmetric there's no tenderness to the sinuses are mastoids there is tenderness to the occipital nerve is bilaterally. Nose is patent with a right septal deviation intranasal purulence is noted. Uvula and throat demonstrates no tumors or masses no oral pathology is seen. Neck trachea midline thyroid is not enlarged no tumors or masses are palpable.otologic examination demonstrates a bilateral cerumen impaction well developed, well nourished, no distress, no moderate distress, no severe distress, no pain, obese (A creatinine is) - Eyes PERRL, normal ocular movement, pale - ENT normal pinna, no hearing loss - Neck no masses, no bruits, trachea midline, no lymphadectomy, no venous distension ( elevated and don't consults: Tonsils the Gelfoam 11:00 to no ) - Respiratory normal expansion (slightly life ), normal respiratory effort, clear to percussion ( O [place] over. ), clear to auscultation ([place] overtaken overwork noted regarded as did his overnight and I'm never home before 8:00 Guilherme every night so anyways the Dr. Lane everything go well ) - Cardiovascular Rhythm: regular - Integumentary no rash, no growths - Neurologic normal coordination, normal sensation - Musculoskeletal normal gait, normal posture - Psychiatric oriented to time, oriented to person, oriented to place, speech is normal, memory intact Results - Labs 12/28/17 05:44 12/28/17 05:44 Abnormal Lab Results - Last 24 Hours (Table) 12/28/17 12/28/17 12/29/17 Range/Units 17:39 20:48 16:50 POC Glucose (mg/dL) 115 H 241 H (75-99) mg/dL Hemoglobin A1c 6.9 H (4.0-6.0) % Diabetes panel 12/28/17 12/28/17 Range/Units 05:44 17:39 Hemoglobin A1c 6.9 H (4.0-6.0) % Triglycerides 120 (<150) mg/dL HDL Cholesterol 46 (40-60) mg/dL Assessment and Plan (1) Chronic maxillary sinusitis Current Visit: Yes Status: Acute Code(s): J32.0 - CHRONIC MAXILLARY SINUSITIS SNOMED Code(s): 32014624 (2) Deviated nasal septum Current Visit: Yes Status: Acute Code(s): J34.2 - DEVIATED NASAL SEPTUM SNOMED Code(s): 613530541 (3) Moses bullosa Current Visit: Yes Status: Acute Code(s): J34.89 - OTHER SPECIFIED DISORDERS OF NOSE AND NASAL SINUSES SNOMED Code(s): 622501486 (4) Eustachian tube dysfunction Current Visit: Yes Status: Acute Code(s): H69.80 - OTH DISRD OF EUSTACHIAN TUBE, UNSPECIFIED EAR SNOMED Code(s): 45211240 (5) Impacted cerumen of both ears Current Visit: Yes Status: Acute Code(s): H61.23 - IMPACTED CERUMEN, BILATERAL SNOMED Code(s): 20037995 Plan: This patient does not have mastoiditis but does have fluid in the mastoid air cells secondary to eustachian tube dysfunction. This is a chronic issue and is relatively mild. Patient also has a chronic maxillary sinusitis this been a problem for many years. I'm recommending antibiotic therapy and Flonase nasal spray. Follow-up as an outpatient is recommended. Patient has my card and she is to contact me after discharge. The patient also has a cerumen impaction N or topical drops will be utilized to dissolve the wax. Time with Patient: Greater than 30
[2017-12-29] MEDS: CLOPIDOGREL 75 MG TAB PO SCH (19:59)
[2017-12-29] MEDS: ATORVASTATIN 80 MG TAB PO SCH (19:59)
[2017-12-29 20:38] LABS: Glucose,Whole Blood 79 mg/dL (75-99)
[2017-12-29] MEDS: ACETIC ACID 15 DROPS/ML DROPS OTIC SCH (21:10)
--- NOTE | 2017-12-30 00:07 | P.PN ---
Subjective Progress Note Date: 12/29/17 This patient is a 62-year-old female who was admitted yesterday with symptoms of possible TIA. She presented with symptoms of numbness and weakness involving her left arm. The results of the MRI indicate no acute ischemic changes. There was no evidence of acute infarction. Mild periventricular white matter and subcortical punctate white matter changes were noted to be chronic. There was evidence of acute bilateral mastoiditis right greater than left. We did review these results today with the patient in detail. She underwent a MRI of the brain today the results of which have been reviewed. She was seen by cardiology and they're recommending an outpatient stress test to be done. We would recommend that she should continue on Plavix 75 mg daily for secondary stroke prevention. Objective - Vital Signs Vital signs: Vital Signs Temp 100.5 F H 12/29/17 12:54 Pulse 85 12/29/17 16:00 Resp 16 12/29/17 16:00 BP 143/69 12/29/17 16:00 Pulse Ox 94 L 12/29/17 16:00 Intake & Output 12/28/17 12/29/17 12/29/17 18:59 06:59 18:59 Intake Total 0 1100 936 Balance 0 1100 936 Weight 82.9 kg Intake: IV 0 700 Sodium Chloride 0.9% 1, 0 700 000 ml @ 100 mls/hr IV . Q10H [facility] Rx#:[id number] Intake, IV Titration 1100 Amount Sodium Chloride 0.9% 1, 1100 000 ml @ 100 mls/hr IV . Q10H [facility] Rx#:[id number] Oral 236 Other: # Voids 3 - Exam Physical examination: PHYSICAL EXAMINATION: Patient is resting comfortably in bed. VITAL SIGNS: Blood pressure is [143/69]. Heart rate is [85]. Respiration is [16] . Temperature is [-100.5]. HEENT: Head is atraumatic, neck is supple, there were no carotid bruits. CHEST: Lungs are clear to auscultation and percussion. CARDIAC: S1, S2 normal rate and rhythm. There is no murmur. ABDOMEN: Soft and nontender. Bowel sounds are present. EXTREMITIES: There is no pedal edema. Peripheral pulses are present. Neurological examination: Patient has a nonfocal neurological examination today. There is no evidence of left upper extremity arm weakness on exam - Labs CBC & Chem 7: 02/06/18 05:44 12/28/17 05:44 Labs: Abnormal Lab Results - Last 24 Hours (Table) 12/28/17 12/28/17 12/28/17 Range/Units 17:06 17:39 20:48 POC Glucose (mg/dL) 135 H 115 H (75-99) mg/dL Hemoglobin A1c 6.9 H (4.0-6.0) % Assessment and Plan (1) TIA (transient ischemic attack) Current Visit: Yes Status: Acute Code(s): G45.9 - TRANSIENT CEREBRAL ISCHEMIC ATTACK, UNSPECIFIED SNOMED Code(s): 549169659 (2) Accelerated hypertension Current Visit: Yes Status: Acute Code(s): I10 - ESSENTIAL (PRIMARY) HYPERTENSION SNOMED Code(s): 68771211 (3) Coronary artery disease Current Visit: Yes Status: Acute Code(s): I25.10 - ATHSCL HEART DISEASE OF [place] CORONARY ARTERY W/O ANG PCTRS SNOMED Code(s): 87327191 (4) Diabetes mellitus Current Visit: Yes Status: Acute Code(s): E11.9 - TYPE 2 DIABETES MELLITUS WITHOUT COMPLICATIONS SNOMED Code(s): 77449815 Plan: This patient is a 62-year-old female who was admitted with symptoms of left arm weakness and mild expressive aphasia. Symptoms came on at 3 AM in the morning. was concerned that she has a history of previous stroke. She was brought directly to the emergency room early this morning for further evaluation. She was seen in the ER by Dr. Soto and was sent for a computed tomography scan of the brain. CAT scan of the brain was reported negative for any acute changes. She was suddenly admitted to hospital for further evaluation. She did have fever on initial admission and was tested positive for influenza A. She has been admitted to hospital for further stroke evaluation. Patient has been taking Plavix on a regular basis at home for secondary stroke prevention. Her symptoms of left arm weakness have improved since admission to hospital. Her clinical history suggests possibility of right hemispheric TIA versus stroke. We have recommended a complete stroke evaluation for the patient. We would recommend an MRI of the brain for further evaluation. Patient was able to complete MRI of the brain today. Her MRI results came back negative for any evidence of acute stroke. She is to have a stress test done in the outpatient setting. She is being treated for influenza A at this time. We reviewed the results of the MRI in detail today with the patient. She is pleased that there was no evidence of acute stroke. Her overall prognosis at this time remains guarded. She should be maintained on Plavix for secondary stroke prevention. Her overall prognosis at this time remains guarded.
[2017-12-30 03:51] LABS: Glucose,Whole Blood 95 mg/dL (75-99)
[2017-12-30] MEDS: ACETAMINOPHEN TAB 325 MG TAB PO PRN (05:53)
[2017-12-30 05:55] LABS: Glucose,Whole Blood 88 mg/dL (75-99)
[2017-12-30] MEDS: INSULIN ASPART 100 UNIT/ML 1 ML 10 ML VIAL SQ SCH ×2 (06:03→11:58)
[2017-12-30 06:36] LABS: Anion Gap 8 mmol/L; Blood Urea Nitrogen 9 mg/dL (7-17); Calcium 8.3 mg/dL (8.4-10.2); Carbon Dioxide 29 mmol/L (22-30); Chloride 104 mmol/L (98-107); Glucose 91 mg/dL (74-99); Potassium 3.3 mmol/L (3.5-5.1); Sodium 141 mmol/L (137-145)
[2017-12-30] MEDS: metFORMIN 500 MG TAB PO SCH (07:09)
[2017-12-30] MEDS: CARVEDILOL 6.25 MG TAB PO SCH (07:09)
[2017-12-30] MEDS: PANTOPRAZOLE 40 MG TABLET PO SCH (07:09)
[2017-12-30] MEDS: cefTRIAXone IN SWFI 1,000 MG/10 ML SYRINGE IVP SCH (07:54)
[2017-12-30] MEDS: SODIUM CHLORIDE 0.9% 1,000 ML IV SCH (07:54)
[2017-12-30] MEDS: CYCLOBENZAPRINE 5 MG TAB PO SCH (07:55)
[2017-12-30] MEDS: CHOLECALCIFEROL 1,000 UNIT TAB PO SCH (07:55)
[2017-12-30] MEDS: OSELTAMIVIR 75 MG CAP PO SCH (07:56)
[2017-12-30] MEDS: AMITRIPTYLINE HCL 25 MG TAB PO SCH (07:56)
[2017-12-30] MEDS: ASPIRIN 81 MG PO SCH (07:56)
[2017-12-30] MEDS: ACETIC ACID 15 DROPS/ML DROPS OTIC SCH ×2 (07:57→13:03)
[2017-12-30 08:19] VITALS: RESP 18
[2017-12-30] MEDS ORDERED: FLUTICASONE 50MCG/SPRAY NASAL 16GM EA NOSTRIL SCH (09:00)
[2017-12-30] MEDS ORDERED: LOSARTAN 50 MG TAB PO SCH (09:00)
[2017-12-30 11:38] VITALS: BP 165/76; PULSE 82; TEMP 98.1
[2017-12-30 11:58] LABS: Glucose,Whole Blood 89 mg/dL (75-99)
--- NOTE | 2017-12-30 12:50 | P.DS ---
Providers Date of admission: 12/28/17 07:05 Expected date of discharge: 12/30/17 Attending physician: Scout Bunn Consults: 12/28/17 07:05 Consult Physician Routine Consulting Provider: Cecilia Gonzalez Consult Reason/Comments: Possible TIA Do you want consulting provider notified?: Yes 12/28/17 08:29 Consult Physician Urgent Consulting Provider: Mine Tai Consult Reason/Comments: cp,palpitations Do you want consulting provider notified?: Yes 12/29/17 13:42 Consult Physician Routine Consulting Provider: Eliud Pedersen Consult Reason/Comments: possible mastoiditis, sinusitis Do you want consulting provider notified?: Yes Primary care physician: Scout Bunn [facility] Course: 62-year-old who presented to the emergency room with a chief complaint of weakness and numbness of her left arm. The patient states she was sleeping last night when she was awoken out of a deep sleep. She described the events as if she stopped breathing. She states she felt her heart "thump" as if it stopped beating and then after 10-15 seconds, she states it felt normal. The patient states it did not feel like her heart was racing. She has weakness to her left upper and lower extremity secondary to a TIA two years ago, but she states her left side felt more weak than normal. Patients family is at the bedside and states that patients blood pressure has been elevated at home for the last 2-3 months. She states she takes her blood pressure at least once a day , sometimes twice and it has been running 180-200s/80-90s. She states she did see Dr. Bunn in the office for her blood pressure and he adjusted her medications. She denies nausea or vomiting. Denies shortness of breath currently. She is experiencing a cough that is nonproductive. Positive for fever and chills. 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 Chest x-ray: Negative for acute process CT of the brain: Negative for acute process EKG: Sinus rhythm with no acute changes Echocardiogram: Ejection fraction between 55-60%, mild mitral regurgitation, mild tricuspid regurgitation, mild pulmonary hypertension, with RVSP of 40.20mmHg. Carotid Doppler: Slightly elevated velocities on the left with significantly elevated velocities left ECA when compared to previous Laboratory data: WBC 4.9. Hemoglobin 14.2. Platelet count 156. Sodium 142. Potassium 3.5. BUN 12. Creatinine 0.72. Glucose 127. Magnesium . ALT 71. AST 60. Troponins negative 3 Testing for influenza A was positive Urinalysis reveals: Trace proteinuria, trace glucose, and trace leukocyte esterase The patient was admitted to the hospital under the care of Dr. Bunn. Consultations were placed to cardiology and neurology. The patients blood pressure has been elevated during hospitalization. Her coreg was increased per cardiology. Cozaar was increased to 50mg daily. Her blood pressure has improved. Physical therapy was consulted and evaluated patient. PT recommends a cane. Rx given to case management who will obtain cane for patient at discharge. MRI of the brain: No acute ischemic changes, acute infarct is not identified. Mild periventricular white matter and subcortical punctate white matter changes can be chronic. Clinical correlation recommended for acute mild bilateral mastoiditis, right more than left. Mild acute left maxillary sinusitis may present. Dr. Pedersen was consulted secondary to MRI results. Mastoiditis was ruled out. Patient does have chronic sinusitis, deviated nasal septum, moses bullosa, and eustachian tube dysfunction The patient was deemed stable for discharge. She is to follow up on an outpatient basis. DISCHARGE DIAGNOSIS: Right hemispheric transient ischemic attack, present on admission Essential hypertension, currently uncontrolled Acute influenza A, type A Chest pain with "thump" sensation per patient, atypical for acute coronary syndrome, troponins negative x3 Possible acute mild bilateral mastoiditis, right more than left, ruled out per ENT Chronic sinusitis, deviated nasal septum, moses bullosa, and eustachian tube dysfunction per ENT Persistent headache, improving Diabetes mellitus, type II, hemoglobin A1c 6.9% History of CVA/TIA in 2015 with residual left-sided weakness Hyperlipidemia Osteoarthritis Obesity: BMI 36.9 Nurse practitioner note has been reviewed by physician. Signing provider agrees with the documented findings, assessment, and plan of care. Patient Condition at Discharge: Fair Plan - Discharge Summary Discharge Rx Participant: Yes New Discharge Prescriptions: New Acetaminophen Tab [Tylenol] 650 mg PO Q6HR PRN tab PRN Reason: Fever and/ or Mild Pain Acetic Acid [Acetic Acid Otic Solution] 5 drops OTIC QID #1 bottle Amoxicillin/Potassium Clav [Augmentin 875-125 Tablet] 1 tab PO Q12HR #14 tab Aspirin 81 mg PO DAILY #30 chew Carvedilol [Coreg] 6.25 mg PO BID-W/MEALS #60 tab Fluticasone Nasal [place] [Flonase Nasal [place]] 2 spray EA NOSTRIL DAILY #1 bottle Losartan [Cozaar] 50 mg PO DAILY #30 tab Oseltamivir [Tamiflu] 75 mg PO Q12HR #6 cap Continue Atorvastatin [Lipitor] 80 mg PO HS Cyclobenzaprine [Flexeril] 5 mg PO BID PRN PRN Reason: Pain Pantoprazole Sodium [Protonix] 40 mg PO DAILY Clopidogrel Bisulfate [Plavix] 75 mg PO HS SUMAtriptan SUCCINATE [Imitrex] 50 mg PO ONCE PRN PRN Reason: Migraine Headache Cholecalciferol (Vitamin D3) [Vitamin D3] 2,000 unit PO DAILY Amitriptyline HCl [Elavil] 25 mg PO DAILY metFORMIN HCL [Glucophage] 500 mg PO BID Discontinued Carvedilol [Coreg] 3.125 mg PO HS Carvedilol [Coreg] 6.25 mg PO QAM Losartan Potassium [Cozaar] 25 mg PO DAILY Discharge Medication List Atorvastatin [Lipitor] 80 mg PO HS 09/22/15 [History] Amitriptyline HCl [Elavil] 25 mg PO DAILY 12/28/17 [History] Cholecalciferol (Vitamin D3) [Vitamin D3] 2,000 unit PO DAILY 12/28/17 [History] Clopidogrel Bisulfate [Plavix] 75 mg PO HS 12/28/17 [History] Cyclobenzaprine [Flexeril] 5 mg PO BID PRN 12/28/17 [History] Pantoprazole Sodium [Protonix] 40 mg PO DAILY 12/28/17 [History] SUMAtriptan SUCCINATE [Imitrex] 50 mg PO ONCE PRN 12/28/17 [History] metFORMIN HCL [Glucophage] 500 mg PO BID 12/28/17 [History] Acetaminophen Tab [Tylenol] 650 mg PO Q6HR PRN tab 12/30/17 [Rx] Acetic Acid [Acetic Acid Otic Solution] 5 drops OTIC QID #1 bottle 12/30/17 [Rx] Amoxicillin/Potassium Clav [Augmentin 875-125 Tablet] 1 tab PO Q12HR #14 tab 07/09 [Rx] Aspirin 81 mg PO DAILY #30 chew 12/30/17 [Rx] Carvedilol [Coreg] 6.25 mg PO BID-W/MEALS #60 tab 12/30/17 [Rx] Fluticasone Nasal [place] [Flonase Nasal [place]] 2 spray EA NOSTRIL DAILY #1 bottle 12/30/17 [Rx] Losartan [Cozaar] 50 mg PO DAILY #30 tab 12/30/17 [Rx] Oseltamivir [Tamiflu] 75 mg PO Q12HR #6 cap 12/30/17 [Rx] Follow up Appointment(s)/Referral(s): Nell Gonzalez MD [STAFF PHYSICIAN] - 1 Week Eliud Pedersen DO [Doctor of Osteopathic Medicine] - 1 Week Scout Bunn DO [Primary Care Provider] - 1 Week Patient Instructions/Handouts: Transient Ischemic Attack (DC), Influenza (DC) Discharge Disposition: HOME SELF-CARE
--- NOTE | 2017-12-30 12:51 | EEG ---
ELECTROENCEPHALOGRAM REPORT DATE OF EE12/29/2017 ELECTROENCEPHALOGRAPHIC EXAMINATION REPORT: INDICATION FOR EXAMINATION: This patient is a 62-year-old female being evaluated for left arm weakness and possible TIA. AGE: 62. EEG FINDINGS: A routine 21 channel awake digital EEG recording was accomplished utilizing the 10-20 international system with bipolar and referential montages. The background activity in the most alert resting state consists of a low to medium amplitude, fairly well- developed and well-sustained 8 Hz activity over the posterior head regions. This posterior rhythm attenuates to eye opening. There is a small amount of low amplitude 18-20 Hz beta activity seen maximally over the anterior head regions. Muscle and movement artifact was observed on a few occasions during the tracing. Hyperventilation was not performed. Photic stimulation at flash frequencies of 2-30 Hz produced a good symmetrical occipital driving response. No epileptiform discharges were seen. IMPRESSION: This EEG is within normal limits for the patient's age. The EEG failed to reveal any focal, lateralized, or epileptiform abnormalities. Clinical correlation is recommended. MMCHIDI / RAMSEYN: [id number] /
--- NOTE | 2017-12-30 14:55 | P.PN ---
Subjective Progress Note Date: 12/30/17 Principal diagnosis: Atypical chest pain This is a 62-year-old female with history of hypertension, diabetes, hyperlipidemia, strong family history of premature coronary artery disease in her rather who has had coronary artery bypass grafting surgery, as well as her father who also underwent coronary artery bypass grafting surgery, she is a nonsmoker, history of prior CVA. Patient presents to the hospital with symptoms of palpitations and left arm numbness. She states that she awoke from sleep, felt her heart race and then it felt as though it stopped, again she noticed it beating fast, she had some left arm discomfort and numbness, and states subsequent to this she also had uncomfortable feeling in her chest. She denies any fever or chills at home, no recent cough, she does complain of severe headache. According to the patient, her blood pressure has also been running very high at home for quite some time. Her current medications at home include Glucophage 500 mg twice a day, Elavil 25 mg daily, Coreg 6.25 mg in the morning and 3.125 mg at at bedtime, Cozaar 25 mg daily, Plavix 75 mg daily, Imitrex when necessary, Lipitor 80 mg daily. Patient denies having any prior workup for coronary artery disease in the form of stress test or heart catheterization. CAT scan of the brain was performed on admission here which not reveal any acute findings. EKG on admission here shows a normal sinus rhythm with no acute changes. Carotid Doppler study was performed which revealed slightly elevated velocities on the left, significantly elevated velocities left ECA as compared with previous. Blood pressure on arrival here 207/98, heart rate in the 90s, 98% on room air. Blood pressure this morning 142 /70 with a heart rate in the 80s, the patient is running fevers, temperature was up to 102.5 at 11 PM last evening, temperature this morning 100.7. She is positive for influenza A. White blood cell count is normal, hemoglobin 14.2, platelet count 156. Sodium 142, potassium 3.5, BUN 12, creatinine 0.7. AST 71 , ALT 60. Troponins negative 3. Echocardiogram with Doppler study was performed which revealed an ejection fraction of 55-60%, mild MR, mild TR. At the time of my examination this morning, patient complains of headache. She denies any chest discomfort, does complain of body aches this morning, denies any shortness of breath. O2 O8 2017 Patient seen and examined this morning, looking much better today overall, much more alert, denies any further body aches. No chest discomfort. MRI of the brain was performed which did not reveal any acute ischemic changes. Blood pressure 150/70, heart rate in the 80s, respirations 18. Objective - Vital Signs Vital signs: Vital Signs Temp 98.1 F 12/30/17 11:36 Pulse 82 12/30/17 11:36 Resp 18 12/30/17 11:36 BP 165/76 12/30/17 11:36 Pulse Ox 93 L 12/30/17 11:36 Intake & Output 12/29/17 12/30/17 12/30/17 18:59 06:59 18:59 Intake Total 936 1200 600 Balance 936 1200 600 Weight 84 kg Intake: IV 700 900 Sodium Chloride 0.9% 1, 700 900 000 ml @ 100 mls/hr IV . Q10H [facility] Rx#:[id number] Oral 236 300 600 Other: Voiding Method Toilet # Voids 1 2 # Bowel Movements 0 - Exam PHYSICAL EXAMINATION: HEENT: Head is atraumatic, normocephalic. Pupils equal, round. Neck is supple. There is no elevated jugular venous pressure. HEART EXAMINATION: Heart S1, S2 normal. No murmur or gallop heard. CHEST EXAMINATION: Lungs are clear to auscultation and precussion. No chest wall tenderness is noted on palpation or with deep breathing. ABDOMEN: Soft, nontender. Bowel sounds are heard. No organomegaly noted. EXTREMITIES: 2+ peripheral pulses with no evidence of peripheral edema and no calf tenderness noted. NEUROLOGIC patient is awake, alert and oriented -3. - Labs CBC & Chem 7: 12/28/17 05:44 12/30/17 05:55 Labs: Abnormal Lab Results - Last 24 Hours (Table) 12/29/17 12/30/17 Range/Units 16:50 05:55 Potassium 3.3 L (3.5-5.1) mmol/L POC Glucose (mg/dL) 241 H (75-99) mg/dL Calcium 8.3 L (8.4-10.2) mg/dL Assessment and Plan Plan: Assessment and plan #1 symptoms of chest pain with associated palpitations, atypical for acute coronary syndrome. Troponins negative 3. EKG shows a normal sinus rhythm with no acute changes. #2 positive influenza A #3 hypertension, uncontrolled #4 diabetes # 5 hyperlipidemia #6 prior CVA #7 strong family history of premature coronary artery disease in her father and her brother. Plan Patient did have an echocardiogram with Doppler study performed here which revealed an ejection fraction of 55-60%. Borderline LVH. Once the patient's fluid has resolved, we would recommend stress testing as an outpatient for further evaluation of possible underlying coronary artery disease. She may be able to be discharged home once cleared by primary. We'll make her a follow-up appointment in the office with Dr. Basurto post discharge. DNP note has been reviewed, I agree with a documented findings and plan of care. Patient was seen and examined.
--- NOTE | 2017-12-30 17:02 | P.PN ---
Subjective Progress Note Date: 12/30/17 This patient is a 62-year-old female who was admitted yesterday with symptoms of possible TIA. She presented with symptoms of numbness and weakness involving her left arm. The results of the MRI indicate no acute ischemic changes. There was no evidence of acute infarction. Mild periventricular white matter and subcortical punctate white matter changes were noted to be chronic. There was evidence of acute bilateral mastoiditis right greater than left. We did review these results today with the patient in detail. She underwent a MRI of the brain today the results of which have been reviewed. She was seen by cardiology and they are recommending an outpatient stress test to be done. We would recommend that she should continue on Plavix 75 mg daily for secondary stroke prevention. The patient is being followed up by cardiology as well. Neurologically she has had no further recurrence of left- sided arm numbness or weakness. She may follow-up in the outpatient clinic as needed. Patient is being discharged home later today. We did discuss the results of the MRI once again in detail with the patient which came back negative. Objective - Vital Signs Vital signs: Vital Signs Temp 98.1 F 12/30/17 11:36 Pulse 82 12/30/17 11:36 Resp 18 12/30/17 11:36 BP 165/76 12/30/17 11:36 Pulse Ox 93 L 12/30/17 11:36 Intake & Output 12/29/17 12/30/17 12/30/17 18:59 06:59 18:59 Intake Total 936 1200 600 Balance 936 1200 600 Weight 84 kg Intake: IV 700 900 Sodium Chloride 0.9% 1, 700 900 000 ml @ 100 mls/hr IV . Q10H [facility] Rx#:[id number] Oral 236 300 600 Other: Voiding Method Toilet # Voids 1 2 # Bowel Movements 0 - Exam Physical examination: PHYSICAL EXAMINATION: Patient is resting comfortably in bed. VITAL SIGNS: Blood pressure is [165/76]. Heart rate is [82]. Respiration is [18] . Temperature is [98.1]. HEENT: Head is atraumatic, neck is supple, there were no carotid bruits. CHEST: Lungs are clear to auscultation and percussion. CARDIAC: S1, S2 normal rate and rhythm. There is no murmur. ABDOMEN: Soft and nontender. Bowel sounds are present. EXTREMITIES: There is no pedal edema. Peripheral pulses are present. Neurological examination: Patient has a nonfocal neurological examination today. There is no evidence of left upper extremity arm weakness on exam - Labs CBC & Chem 7: 12/28/17 05:44 12/30/17 05:55 Labs: Abnormal Lab Results - Last 24 Hours (Table) 12/29/17 12/30/17 Range/Units 16:50 05:55 Potassium 3.3 L (3.5-5.1) mmol/L POC Glucose (mg/dL) 241 H (75-99) mg/dL Calcium 8.3 L (8.4-10.2) mg/dL Assessment and Plan (1) TIA (transient ischemic attack) Status: Acute Code(s): G45.9 - TRANSIENT CEREBRAL ISCHEMIC ATTACK, UNSPECIFIED SNOMED Code(s): 088263784 (2) Accelerated hypertension Status: Acute Code(s): I10 - ESSENTIAL (PRIMARY) HYPERTENSION SNOMED Code(s) : 93850565 (3) Coronary artery disease Status: Acute Code(s): I25.10 - ATHSCL HEART DISEASE OF [place] CORONARY ARTERY W/O ANG PCTRS SNOMED Code(s): 82118755 (4) Diabetes mellitus Status: Acute Code(s): E11.9 - TYPE 2 DIABETES MELLITUS WITHOUT COMPLICATIONS SNOMED Code(s): 03786222 Plan: This patient is a 62-year-old female initially admitted with symptoms of left arm numbness and possible TIA versus stroke. She underwent an MRI of the brain which did come back negative for acute stroke. She is to continue on Plavix for secondary stroke prevention. Patient is also being seen by cardiology. She 'll be undergoing a stress test in the outpatient setting. Patient is being considered for discharge home today and should continue with her current dose of Plavix for secondary stroke prevention. Patient a follow-up in the neurology clinic as needed. She should follow-up with her primary care physician in one week.
== END 2017-12-30 15:14 | disposition home or self-care (01) ==
LOC: EC 05:16 → 6SEL 07:05
PROVIDERS: ADMIT Family Medicine; ATTEND Family Medicine
DX: G45.9 Transient cerebral ischemic attack, unspecified (principal); I10 Essential (primary) hypertension; J10.1 Influenza due to other identified influenza virus with other respiratory manifestations; R07.9 Chest pain, unspecified; J32.0 Chronic maxillary sinusitis; J34.2 Deviated nasal septum; R51 Headache; E11.9 Type 2 diabetes mellitus without complications; I69.354 Hemiplegia and hemiparesis following cerebral infarction affecting left non-dominant side; E78.5 Hyperlipidemia, unspecified; M19.90 Unspecified osteoarthritis, unspecified site; E66.9 Obesity, unspecified; Z68.36 Body mass index [BMI] 36.0-36.9, adult; H69.90 Unspecified Eustachian tube disorder, unspecified ear; R00.2 Palpitations; R47.01 Aphasia; R53.1 Weakness; R20.0 Anesthesia of skin; J01.00 Acute maxillary sinusitis, unspecified; H61.23 Impacted cerumen, bilateral; J34.89 Other specified disorders of nose and nasal sinuses; I48.92 Unspecified atrial flutter; G47.33 Obstructive sleep apnea (adult) (pediatric); G51.0 Bell's palsy; M19.042 Primary osteoarthritis, left hand; M19.041 Primary osteoarthritis, right hand; M17.11 Unilateral primary osteoarthritis, right knee; I25.10 Atherosclerotic heart disease of native coronary artery without angina pectoris; Z98.84 Bariatric surgery status; Z82.49 Family history of ischemic heart disease and other diseases of the circulatory system; Z82.0 Family history of epilepsy and other diseases of the nervous system; Z80.51 Family history of malignant neoplasm of kidney; Z79.02 Long term (current) use of antithrombotics/antiplatelets; Z79.899 Other long term (current) drug therapy; Z79.84 Long term (current) use of oral hypoglycemic drugs
CPT/HCPCS: 99285; 96374; 96376; 96361 ×2; 96375; 36415; 95819; 93005; 93306; 97116; 97162; 97165; 92610; 80061; 80053; 80048; 82550; 82553; 84484; 85025; 85610; 85730; 81001; 87502; 83036; 71045; 93880; 70450; 70551; G0378 ×3; J0360; J2405; J0696 ×2; J2270

== ENCOUNTER → 2020-07-31 | Outpatient (CLI) | payer OTHER ==
--- NOTE | 2020-07-31 10:38 | US ---
EXAMINATION TYPE: US abdomen complete DATE OF EXAM: 07/31/2020 COMPARISON: NONE CLINICAL HISTORY: 64-year-old female R94.5 Abnormal Liver function test. Hx of appendectomy TECHNIQUE: Multiple sonographic images of the abdomen are obtained. FINDINGS: EXAM MEASUREMENTS: Liver Length: 16.7 cm Gallbladder Wall: 0.2 cm CBD: 0.5 cm Spleen: 9.3 cm Right Kidney: 10.0 x 4.2 x 5.1 cm Left Kidney: 11.4 x 5.2 x 5.4 cm Pancreas: Not well seen; Mostly obscured Liver: Echogenic and attenuating. No definite focal lesion seen. Gallbladder: wnl Evidence for sonographic Posey's sign: No CBD: wnl Spleen: wnl Kidneys: No hydronephrosis. Upper IVC: wnl Abd Aorta: wnl IMPRESSION: 1. Moderate to severe hepatic steatosis. Correlate with LFTs, lipid profile, and patient risk factors . 2. No gallstones or biliary ductal dilatation.
== END | disposition home or self-care (01) ==
LOC: RADUSWWP 09:11
PROVIDERS: ATTEND Family Medicine
DX: K76.0 Fatty (change of) liver, not elsewhere classified (principal)
CPT/HCPCS: 76700

== ENCOUNTER → 2021-03-25 | Outpatient (CLI) | payer OTHER ==
--- NOTE | 2021-03-26 10:18 | MM ---
Reason for exam: screening (asymptomatic). Last mammogram was performed 11 years and 10 months ago. History: Patient is postmenopausal. Benign left US cyst aspiration of the left breast, December 02, 2006. Benign core biopsy, August 21, 1997. Benign stereotactic core biopsy of the right breast, August 21, 1997. Took estrogen for 2 years 7 months beginning at age 48. Physical Findings: A clinical breast exam by your physician is recommended on an annual basis and results should be correlated with mammographic findings. MG 3D Screening Mammo W/Cad Bilateral CC and MLO view(s) were taken. Prior study comparison: May 20, 2009, bilateral digital screening mammogram. March 16, 2008, bilateral digital screening mammogram. The breast tissue is heterogeneously dense. This may lower the sensitivity of mammography. Previous mammotome biopsy in the left breast. This finding is changed when compared with previous exams. ASSESSMENT: Incomplete: need additional imaging evaluation, BI-RAD 0 RECOMMENDATION: Special view mammogram of the left breast. If lesion persists on supplemental views, image directed ultrasound is recommended. [facility] will attempt to contact patient to return for supplemental views and ultrasound if indicated.
== END | disposition home or self-care (01) ==
LOC: RADMAMWWP 09:05
PROVIDERS: ATTEND Family Medicine
DX: Z12.31 Encounter for screening mammogram for malignant neoplasm of breast (principal); Z78.0 Asymptomatic menopausal state
CPT/HCPCS: 77063; 77067

== ENCOUNTER → 2021-04-10 | Outpatient (CLI) | payer OTHER ==
--- NOTE | 2021-04-10 13:36 | MM ---
Reason for exam: additional evaluation requested from abnormal screening. Last mammogram was performed 1 month ago. History: Patient is postmenopausal. Benign left US cyst aspiration of the left breast, December 02, 2006. Benign core biopsy, August 21, 1997. Benign stereotactic core biopsy of the right breast, August 21, 1997. Took estrogen for 2 years 7 months beginning at age 48. Physical Findings: Nurse did not find any significant physical abnormalities on exam. MG 3D Work Up W/Cad LT Spot compression CC, spot compression MLO, and ML view(s) were taken of the left breast. Prior study comparison: March 25, 2021, bilateral MG 3d screening mammo w/cad. May 20, 2009, bilateral digital screening mammogram. The breast tissue is heterogeneously dense. This may lower the sensitivity of mammography. Previously seen area of distortion lateral left breast does not persist, most likely represents benign asymmetry. These results were verbally communicated with the patient and result sheet given to the patient on 04/10/21. ASSESSMENT: Benign, BI-RAD 2 RECOMMENDATION: Return to routine screening mammogram schedule for both breasts.
== END | disposition home or self-care (01) ==
LOC: RADMAMWWP 10:04
PROVIDERS: ATTEND Family Medicine
DX: N64.59 Other signs and symptoms in breast (principal); Z78.0 Asymptomatic menopausal state
CPT/HCPCS: 77061; 77065

== ENCOUNTER → 2023-05-04 | Outpatient (CLI) | payer MEDICARE ==
--- NOTE | 2023-05-04 09:34 | BD ---
EXAMINATION TYPE: Axial Bone Density DATE OF EXAM: 05/04/2023 CLINICAL HISTORY: 67 years old Female. ICD-10 CODE: N95.1 SCREENING Height: 57 Weight: 180 FRAX RISK QUESTIONS: Secondary Osteoporosis: yes 3. Menopause before 45: yes RISK FACTORS HISTORY OF: History of Wrist Fracture: hx of left wrist fx...as a youth. Postmenopausal woman: yrs at age 38 yrs old, total hysterectomy. Take estrogen and/or progesterone medications: in the past for under one yr, after the surgery. Hyperparathyroidism: no Adrenal Insufficiency: no MEDICATIONS: Additional Medications: bp meds, diabetic meds. reflux meds, statin for cholesterol, vit d Additional History: diabetic, reflux, hypertension, and cholesterol. EXAM MEASUREMENTS: Bone mineral densitometry was performed using the [employer] System. Bone mineral density as measured about the Lumbar spine is: ----- L1-L4(G/cm2): 0.975 T Score Values are as follows: ----- L1: -0.8 ----- L2: -2.4 ----- L3: -2.1 ----- L4: -1.5 ----- L1-L4: -1.7 Z Score Values are as follows: ----- L1: 0.2 ----- L2: -1.4 ----- L3: -1.0 ----- L4: -0.5 ----- L1-L4: -0.6 Bone mineral density is a baseline study for this patient. Bone mineral density about the R hip (g/cm2): 0.968 Bone mineral density about the L hip (g/cm2): 0.955 T Score values are as follows: -----R Neck: -1.9 -----L Neck: -2.2 -----R Total: -0.3 -----L Total: -0.4 Z Score values are as follows: -----R Neck: -0.6 -----L Neck: -1.0 -----R Total: 0.6 -----L Total: 0.5 Bone mineral density is a baseline study. FRAX%s: The graph provided illustrates a 11.2% chance for a major osteoporotic fx and a 2.0% chance f or the hips probability for fx in 10 years time. IMPRESSION: Osteopenia (T Score between -2.5 and -1). There is slightly increased risk of fracture and the patient may be considered for treatment. Re-Screen 2-5 years. NOTE: T-SCORE=SD OF THE YOUNG ADULT MEAN.
--- NOTE | 2023-05-04 17:33 | MM ---
Reason for Exam: Screening (asymptomatic). Last mammogram was performed 2 year(s) and 1 month(s) ago. Patient History: Menarche at age 11. First Full-Term at age 21. Left ovary removed at age 48. Right ovary removed at age 48. Hysterectomy at age 48. Postmenopausal. Estrogen for 2 years, 7 months, from age 48 until age 51. 12/02/2006, Benign Cyst Aspiration on the left side. Benign Core Biopsy. 08/21/1997, Benign Stereotactic Core Biopsy on the right side. Risk Values: Franchesca 5 year model risk: 2.5%. NCI Lifetime model risk: 8.4%. Prior Study Comparison: 05/20/2009 Bilateral Screening Mammogram, [facility]. 03/25/2021 Bilateral Screening Mammogram, [facility]. 04/10/2021 Left Diagnostic Mammogram, [facility]. Tissue Density: There are scattered fibroglandular densities. Findings: Analyzed By CAD. Microclip medial left breast from prior biopsy. There is no suspicious group of microcalcifications or new suspicious mass in either breast. Overall Assessment: Negative, BI-RAD 1 Management: Screening Mammogram of both breasts in 1 year. . Patient should continue monthly self-breast exams. A clinical breast exam by your physician is recommended on an annual basis. This exam should not preclude additional follow-up of suspicious palpable abnormalities. Note on Franchesca scores and lifetime risk: 1. A Frnachesca score greater than 3% is considered moderate risk. If this is the case, consider specialist referral to assess eligibility for a risk reducing agent. 2. If overall lifetime risk for the development of breast cancer is 20% or higher, the patient may qualify for future screening with alternating mammogram and breast MRI. Electronically signed and approved by: Alden Taylor M.D. Radiologist
== END | disposition home or self-care (01) ==
LOC: RADMAMWWP 06:47
PROVIDERS: ATTEND Family Medicine
DX: Z12.31 Encounter for screening mammogram for malignant neoplasm of breast (principal); M85.89 Other specified disorders of bone density and structure, multiple sites; Z78.0 Asymptomatic menopausal state
CPT/HCPCS: 77063; 77067; 77080

== ENCOUNTER → 2024-02-21 | Outpatient (CLI) | payer MEDICARE ==
[2024-02-21 12:08] LABS: ALT 38 U/L (8-44); AST 29 U/L (13-35); Chol/HDL Ratio 4.42 Ratio; LDL Cholesterol,Calculated 100.3 mg/dL (0.0-131.0)
== END | disposition home or self-care (01) ==
LOC: LABWHC1 07:22
PROVIDERS: ATTEND Nurse Practitioner Acute Care
DX: E78.2 Mixed hyperlipidemia (principal)
CPT/HCPCS: 36415; 80061; 84450; 84460

== ENCOUNTER → 2024-04-29 | Outpatient (CLI) | payer MEDICARE | END | disposition home or self-care (01) | LOC: LABWHC1 07:31 | PROVIDERS: ATTEND Family Medicine | DX: E11.65 Type 2 diabetes mellitus with hyperglycemia (principal) | CPT/HCPCS: 36415; 83036 ==

== ENCOUNTER → 2024-06-16 | Outpatient (CLI) | payer MEDICARE ==
--- NOTE | 2024-06-20 09:37 | MM ---
Reason for Exam: Screening (asymptomatic). Last mammogram was performed 1 year(s) and 1 month(s) ago. Patient History: Menarche at age 11. First Full-Term at age 21. Left ovary removed at age 48. Right ovary removed at age 48. Hysterectomy at age 48. Postmenopausal. Estrogen for 2 years, 7 months, from age 48 until age 51. 12/02/2006, Benign Cyst Aspiration on the left side. Benign Core Biopsy. 08/21/1997, Benign Stereotactic Core Biopsy on the right side. Risk Values: Franchesca 5 year model risk: 2.5%. NCI Lifetime model risk: 8.1%. Prior Study Comparison: 03/25/2021 Bilateral Screening Mammogram, [facility]. 04/10/2021 Left Diagnostic Mammogram, [facility]. 05/04/2023 Bilateral MG 3D screening mammo w/cad, [facility]. Tissue Density: The breasts are heterogeneously dense, which may obscure small masses. Findings: Analyzed By CAD. There is no suspicious group of microcalcifications or new suspicious mass in either breast. Overall Assessment: Negative, BI-RAD 1 Management: Screening Mammogram of both breasts in 1 year. . Patient should continue monthly self-breast exams. A clinical breast exam by your physician is recommended on an annual basis. This exam should not preclude additional follow-up of suspicious palpable abnormalities. Note on Franchesca scores and lifetime risk: 1. A Franchesca score greater than 3% is considered moderate risk. If this is the case, consider specialist referral to assess eligibility for a risk reducing agent. 2. If overall lifetime risk for the development of breast cancer is 20% or higher, the patient may qualify for future screening with alternating mammogram and breast MRI. Electronically signed and approved by: Reyes Fowler M.D. Radiologis
== END | disposition home or self-care (01) ==
LOC: RADMAMWWP 12:37
PROVIDERS: ATTEND Family Medicine
DX: Z12.31 Encounter for screening mammogram for malignant neoplasm of breast (principal); R92.333 Mammographic heterogeneous density, bilateral breasts; Z78.0 Asymptomatic menopausal state
CPT/HCPCS: 77063; 77067

== ENCOUNTER → 2024-11-24 | Outpatient (CLI) | payer MEDICARE ==
[2024-11-24 15:52] LABS: Chol/HDL Ratio 1.24 Ratio; LDL Cholesterol,Calculated -9.5 mg/dL (0.0-131.0)
== END | disposition home or self-care (01) ==
LOC: LABWHC1 08:40
PROVIDERS: ATTEND Internal Medicine
DX: E11.9 Type 2 diabetes mellitus without complications (principal); E78.5 Hyperlipidemia, unspecified
CPT/HCPCS: 36415; 80061

== ENCOUNTER → 2024-12-16 | Outpatient (CLI) | payer MEDICARE ==
[2024-12-16 12:48] LABS: Basophils # (A) 0.04 X 10*3/uL (0.00-0.10); Basophils % (A) 0.5 %; Eosinophils # (A) 0.38 X 10*3/uL (0.04-0.35); Eosinophils % (A) 4.4 %; HCT 46.8 % (37.2-46.3); HGB 15.1 g/dL (12.0-15.0); Lymphocytes # (A) 2.67 X 10*3/uL (0.90-5.00); Lymphocytes % (A) 31.1 %; MCH 29.8 pg (27.0-32.0); MCHC 32.3 g/dL (32.0-37.0); MCV 92.5 FL (80.0-97.0); Mean Platelet Volume 10.9 FL (9.5-12.2); Monocytes # (A) 0.68 X 10*3/uL (0.20-1.00); Monocytes % (A) 7.9 %; NRBC Per 100 WBC 0 X 10*3/uL (0.00-0.01); Neutrophils # (A) 4.78 X 10*3/uL (1.80-7.70); Neutrophils % (A) 55.8 %; Platelet Count 276 X 10*3/uL (140-440); RBC 5.06 X 10*6/uL (4.10-5.20); RDW 12.2 % (11.5-14.5); WBC 8.58 X 10*3/uL (4.50-10.00)
[2024-12-16 13:39] LABS: ALT 27 U/L (8-44); AST 22 U/L (13-35); Albumin 4.3 g/dL (3.8-4.9); Albumin/Globulin Ratio 1.79 Ratio (1.60-3.17); Alkaline Phosphatase 106 U/L (41-126); BUN/Creat Ratio 17.29 Ratio (12.00-20.00); Blood Urea Nitrogen 12.1 mg/dL (9.0-27.0); Carbon Dioxide 26.6 mmol/L (21.6-31.8); Chloride 104 mmol/L (96-109); Globulin 2.4 g/dL (1.6-3.3); Glucose 177 mg/dL (70-110); Potassium 4.4 mmol/L (3.5-5.5); Sodium 143 mmol/L (135-145); Total Bilirubin 0.3 mg/dL (0.3-1.2); Total Protein 6.7 g/dL (6.2-8.2)
== END | disposition home or self-care (01) ==
LOC: LABWHC1 07:04
PROVIDERS: ATTEND Family Medicine
DX: I10 Essential (primary) hypertension (principal); E55.9 Vitamin D deficiency, unspecified; E11.65 Type 2 diabetes mellitus with hyperglycemia
CPT/HCPCS: 36415; 80053; 82306; 83036; 84443; 85025

== ENCOUNTER → 2025-03-24 | Outpatient (CLI) | payer MEDICARE ==
[2025-03-24 15:27] LABS: ALT 33 U/L (8-44); AST 26 U/L (13-35); Albumin 4.2 g/dL (3.8-4.9); Albumin/Globulin Ratio 1.83 Ratio (1.60-3.17); Alkaline Phosphatase 94 U/L (41-126); BUN/Creat Ratio 16.29 Ratio (12.00-20.00); Blood Urea Nitrogen 11.4 mg/dL (9.0-27.0); Calcium 9.2 mg/dL (8.7-10.3); Carbon Dioxide 23.6 mmol/L (21.6-31.8); Chloride 104 mmol/L (96-109); Chol/HDL Ratio 1.27 Ratio; Globulin 2.3 g/dL (1.6-3.3); Glucose 173 mg/dL (70-110); LDL Cholesterol,Calculated -2.4 mg/dL (0.0-131.0); Potassium 3.2 mmol/L (3.5-5.5); Sodium 141 mmol/L (135-145); Total Bilirubin 0.4 mg/dL (0.3-1.2); Total Protein 6.5 g/dL (6.2-8.2)
== END | disposition home or self-care (01) ==
LOC: LABWHC1 07:40
PROVIDERS: ATTEND Internal Medicine
DX: E11.65 Type 2 diabetes mellitus with hyperglycemia (principal)
CPT/HCPCS: 36415; 80053; 80061; 82043; 82570; 83036